=== PATIENT | female | born 1940 | race Caucasian/White ===

== ENCOUNTER 2023-10-04 20:09 | Inpatient (IN) | payer OTHER, SELFPAY ==
[2023-10-04] VITALS (9 sets, daily range): BP systolic 112–146; BP diastolic 55–89; BMI 26.9
[2023-10-04 14:04] LABS: % Basophils 0.7 % (0-2); % Eosinophils 1.3 % (0-6); % Immature Granulocytes 0.2 % (0-0.5); % Lymphocytes 22.9 % (20.5-51.1); % Monocytes 7.7 % (1.7-9.3); % Neutrophils 67.2 % (42.2-75.2); Absolute Basophils 0.1 10^3/uL (0-0.2); Absolute Eosinophils 0.1 10^3/uL (0-0.7); Absolute Monocytes 0.7 10^3/uL (0.1-0.6); Absolute Neutrophils 5.7 10^3/uL (1.4-6.5); Hematocrit 38.5 % (37.0-47.0); Hemoglobin 12.9 g/dL (12.0-16.0); Mean Corp Hgb Conc. 33.5 g/dL (33.0-37.0); Mean Corpuscular Hgb 30.7 pg (27.0-31.0); Mean Corpuscular Volume 91.7 fL (81.0-99.0); Mean Platelet Volume 9.1 fL (7.4-10.4); Nucleated Red Blood Cells % 0 %; Platelet Count 278 10^3/uL (130-400); Red Cell Dist. Width 14.3 % (11.5-14.5); White Blood Cell Count 8.6 10^3/uL (4.8-10.8)
[2023-10-04 14:15] LABS: ALT (SGPT) 23 U/L (0-35); AST (SGOT) 33 U/L (14-36); Albumin 4.4 g/dl (3.5-5.0); Alkaline Phosphatase 61 U/L (38-126); Blood Urea Nitrogen 35 mg/dl (7-17); Calcium 9.7 mg/dl (8.4-10.2); Carbon Dioxide 25 mmol/L (22-30); Chloride 100 mmol/L (98-107); Glucose 99 mg/dl (70-99); Lipase 104 U/L (23-300); Potassium 3.7 mmol/L (3.5-5.1); Sodium 135 mmol/L (135-145); Total Bilirubin 0.7 mg/dl (0.2-1.3); Total Protein 6.9 g/dl (6.3-8.2)
[2023-10-04 14:26] LABS: INR 2.09; PT 23.7 Sec (11.4-14.6); Troponin I < 0.012 ng/ml
[2023-10-04] MEDS: PEPCID 20 MG IV (16:09)
[2023-10-04] MEDS: NSS 500 IV (16:10)
--- NOTE | 2023-10-04 19:02 | ED.GENMED ---
History of Present Illness
General
Chief Complaint: Abdominal Symptoms
Source: patient and spouse
Exam Limitations: none
Time Seen by Provider: 10/04/23 15:05
Nursing documentation reviewed up to this point in time: agreed with
Travel History
Have you had any contact with someone who has COVID-19?: No
Do you have any symptoms of coronavirus? Fever > 100 degrees, chills, cough, shortness of breath, sore throat, loss of taste or smell, muscle aches, or headache?: No
History of Present Illness
History of Present Illness:
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
has lower abdominal pain. Denies any chest pain shortness of breath fevers.
Past History
Past History
ED Past Medical History: HTN, Other (Left lower extremity DVT August 2011), Other (Occasional urinary retention) and Other (Osteoarthritis)
ED Past Surgical History: Gynecological (Pelvic prolapse repair 08/29/2011) and Orthopedic (Bilateral carpal, release, bilateral trigger finger release, right wrist surgery)
Social History
Tobacco: Non-smoker
Alcohol: Occasional
Drug: None
Personal:
Living: with family
Family History
Family History: Hypertension
Review of Systems
Review of Systems
Allergies reviewed?: Yes
All Other Systems: ROS reviewed and negative except as documented in HPI and ROS
Phy Exam
Physical Exam
Physical Exam:
GENERAL: Alert , in no apparent distress
EYE: pupils equal and reactive
NECK: Supple, no significant adenopathy.
ENT: o/p clr, mmm.
CARDIAC: Regular rate and rhythm .
LUNGS: Clear breath sounds bilaterally, no acute respiratory distress, no wheezes/rales/rhonchi
ABDOMEN: Mild lower abdominal pain otherwise soft
NEUROLOGICAL: Alert and oriented, no focal neuro deficits
SKIN: Warm and dry, skin intact.
MUSCULOSKELETAL: No edema, well perfused.
PSYCH: Normal and appropriate interaction.
Course
Orders/Labs/Results
Orders:
Orders
10/04/23 13:42
Electrocardiogram (*1) Urgent
Reason for Study: Abdominal Pain
EKG- Treatment ONCE
10/04/23 13:52
Complete Blood Count/With Diff Urgent
Comprehensive Metabolic Panel Urgent
INR [Prothrombin Time] Urgent
Lipase Urgent
Troponin I Urgent
10/04/23 15:30
CT Abd/Pel (IV only)-DH only Urgent
Comment:
Reason For Exam: abd pain
Famotidine [Pepcid] 20 mg IV NOW STA
10/04/23 15:31
0.9% Sodium Chloride 500 ml [Nss] 500 ml IV BOLUS
Abnormal Lab Results
10/04/23
13:52
Absolute Monos (auto) 0.7 H 10^3/uL
(0.1-0.6)
PT 23.7 H Sec
(11.4-14.6)
BUN 35 H mg/dl
(7-17)
10/04/23 13:52
10/04/23 13:52
Vital Signs
Initial and Last Documented VS:
Initial Vital Signs
Temp Pulse Resp BP Pulse Ox
98.5 F 88 18 112/89 97
10/04/23 13:39 10/04/23 13:39 10/04/23 13:39 10/04/23 13:39 10/04/23 13:39
Last Documented Vital Signs
Temp Pulse Resp BP Pulse Ox
98.5 F 88 18 128/62 96
10/04/23 13:39 10/04/23 13:39 10/04/23 13:39 10/04/23 18:00 10/04/23 18:30
MDM/Problems Addressed
MDM/Problems Addressed:
83-year-old female presenting to the emergency department today with concerns of lower abdominal pain. Ongoing nausea over the past week and decreased bowel movements. Vital signs normal labs unremarkable INR therapeutic CT scan showing small
bowel obstruction plan to admit for further monitoring assessment
*Critical Care Note
Total Time (30-74mins, 75-104mins- exclusive of procedures): Not Applicable
ED Attending Note
-
Portions of this chart may have been created with voice recognition software.� Occasional wrong word or��sound alike� substitutions may have occurred due to the inherent limitations of voice recognition software.
Discharge Plan
Departure
Patient Disposition: Admit
Date of Disposition: 10/04/23
Time of Disposition: 19:04
Admit to: Med/Surg
Admit to doctor: Aravind
Presentation/result/management discussed w/ accepting MD/DO: Hospitalist
Patient with high blood pressure during this ER visit?: No
Condition: Good
Covid-19: Not Applicable
Discharge Problem:
SBO (small bowel obstruction)
Prescriptions:
No Action
Senior Multivitamin
1 tab PO DAILY
Vitamin D & Calcium
2 tab PO DAILY
warfarin [Coumadin] 5 MG tablet
5 mg PO DAILY
pantoprazole 40 MG tablet,delayed release (DR/EC)
40 mg PO DAILY
Lisinopril
7.5 mg PO DAILY
acetaminophen-codeine 1 TABLET tablet
1 tab PO Q6HPRN PRN (Reason: pain) Qty: 15 0RF
Referrals:
Eli Craven MD [Family Provider] -
Interventions
Interventions:
*Risk Screen - Suicide Last Done: 10/04/23 13:39
*General Assessment Last Done: 10/04/23 13:39
*Neglect/Abuse Screening Last Done: 10/04/23 13:39
*ED COVID-19 Vaccine History Last Done: 10/04/23 13:39
HG-Mabgfr-Coxgpaqaie Assessment Last Done: 10/04/23 14:52
--- NOTE | 2023-10-04 19:39 | HPS.HSE ---
Family Physician
-
Family Physician: Eli Craven
Chief Complaint
-
N/V/Abd pain
History of Present Illness
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
CT
Medical History
Past Medical History
Past Medical History: Reports Other
Additional Past Medical History:
See HPI
Past Surgical History: Reports Other
Additional Past Surgical History:
See HPI
Social History
Tobacco: Non-smoker
Alcohol: None
Drug: None
Family History
Family History: Not pertinent
Allergies / Home Medications
Allergies reflects when Allergies were last updated in [employer].
Home Medications with original date entered in [employer]
Allergy/Medication List:
Allergies
Allergy/AdvReac Type Severity Reaction Status Date / Time
Penicillins Allergy Hives Verified 10/04/23 13:42
Home Medications
lisinopril 10 mg tablet 10 mg PO DAILY 03/13/14
atorvastatin 10 mg tablet 10 mg PO QPM 10/04/23
famotidine 20 mg tablet 20 mg PO QPM 10/04/23
hydrochlorothiazide 12.5 mg tablet 12.5 mg PO DAILY 10/04/23
warfarin 5 mg tablet 2.5 mg PO TU@1800 10/04/23
warfarin 5 mg tablet 5 mg PO SUMOWETHFRSA@1800 10/04/23
Review of Systems
-
A 12 point ROS was completed and negative except as noted: Yes
Abdomen/GI: Reports See HPI
Physical Exam
Vital Signs
Vital Signs
Temp Pulse Resp BP Pulse Ox
98.5 F 88 18 146/81 94
10/04/23 13:39 10/04/23 13:39 10/04/23 13:39 10/04/23 19:00 10/04/23 19:00
Physical Exam
General: Well Developed, Well Nourished and No Apparent Distress
HEENT: NormoCephalic and Anicteric
Respiratory: Clear
Cardiac: S1/S2 and Regular Rhythm
GI: Soft, Non Distended, Tender (diffusely) and Other (No bowel sounds)
Musculoskeletal: No Clubbing, No Cyanosis and No Edema
Skin: Warm; No Dry or Rash
Neuro: Awake, Alert, Oriented and AO x 3
Hematologic/Lymphatic: No Lymphadenopathy
Psych: Calm
Laboratory Results
-
10/04/23 13:52
10/04/23 13:52
Laboratory Results
PT 23.7 Sec (11.4-14.6) H 10/04/23 13:52
INR 2.09 10/04/23 13:52
Total Bilirubin 0.7 mg/dl (0.2-1.3) 10/04/23 13:52
AST 33 U/L (14-36) 10/04/23 13:52
ALT 23 U/L (0-35) 10/04/23 13:52
Alkaline Phosphatase 61 U/L (38-126) 10/04/23 13:52
Troponin I < 0.012 ng/ml 10/04/23 13:52
Lipase 104 U/L (23-300) 10/04/23 13:52
Impression/Plan
-
A/P:
#SBO
No flatulence over past 24h
No vomiting - will defer NG tube placement
NPO and advance diet as tolerated
GenSx consult
#May garay with iliac stent thrombosis and chronic LLE swelling
COumadin on hold, start Heparin/LMWH when INR<2.0 to allow for possible intervention if needed
#Essential HTN
cont meds when PO intake restored
IV antihypertensives PRN
DVT ppx on warfarin
Full code
This encounter required high level of medical decision making due to complexity of PMHX and patient presenting symptoms
--- NOTE | 2023-10-04 20:40 | PTCARENOTE ---
Pt transferred to unit from ED with dx of SBO. Patient is AAO x 3 and oriented to the room and call saavedra is within reach. Admission vital signs were stable, no pain reported, and D5W fluids started. Pneumatic compression stockings placed on pt.
[2023-10-04] MEDS: D5W 1000 IV (20:52)
[2023-10-05 06:09] LABS: % Basophils 0.7 % (0-2); % Eosinophils 3.3 % (0-6); % Immature Granulocytes 0.3 % (0-0.5); % Lymphocytes 21.6 % (20.5-51.1); % Monocytes 7.9 % (1.7-9.3); % Neutrophils 66.2 % (42.2-75.2); Absolute Basophils 0.1 10^3/uL (0-0.2); Absolute Eosinophils 0.3 10^3/uL (0-0.7); Absolute Lymphocytes 1.7 10^3/uL (1.2-3.4); Absolute Monocytes 0.6 10^3/uL (0.1-0.6); Absolute Neutrophils 5.1 10^3/uL (1.4-6.5); Hematocrit 34.9 % (37.0-47.0); Hemoglobin 11.7 g/dL (12.0-16.0); Mean Corp Hgb Conc. 33.5 g/dL (33.0-37.0); Mean Corpuscular Hgb 30.6 pg (27.0-31.0); Mean Corpuscular Volume 91.4 fL (81.0-99.0); Mean Platelet Volume 9.3 fL (7.4-10.4); Nucleated Red Blood Cells % 0 %; Platelet Count 258 10^3/uL (130-400); Red Blood Cell Count 3.82 10^6/uL (4.20-5.40); Red Cell Dist. Width 14.2 % (11.5-14.5); White Blood Cell Count 7.7 10^3/uL (4.8-10.8)
[2023-10-05 06:18] LABS: INR 1.97; PT 22.6 Sec (11.4-14.6)
[2023-10-05 06:25] LABS: Lactic Acid 0.7 mmol/L (0.7-2.0)
[2023-10-05 06:44] LABS: ALT (SGPT) 17 U/L (0-35); AST (SGOT) 25 U/L (14-36); Albumin 3.4 g/dl (3.5-5.0); Alkaline Phosphatase 51 U/L (38-126); Blood Urea Nitrogen 23 mg/dl (7-17); Calcium 8.9 mg/dl (8.4-10.2); Carbon Dioxide 26 mmol/L (22-30); Chloride 101 mmol/L (98-107); Estimated Creatinine Clearance 38 ml/min; Glucose 104 mg/dl (70-99); Phosphorus 3.4 mg/dl (2.5-4.5); Potassium 3.8 mmol/L (3.5-5.1); Sodium 134 mmol/L (135-145); Total Bilirubin 0.6 mg/dl (0.2-1.3); Total Protein 5.5 g/dl (6.3-8.2); eGFR > 60.00
[2023-10-05 07:43] VITALS: BP 129/56
[2023-10-05] MEDS: D5W 1000 IV (08:13)
--- NOTE | 2023-10-05 09:07 | CON.GS ---
Addendum entered and electronically signed by Khoi Chambers MD 10/05/23 15:41:
Patient seen and examined with nurse practitioner. Agree with documented consultation.
HPI: Patient is an 83-year-old female with history of open mesh sacrocolpopexy and mid urethral transvaginal tape in 2011 who has been in her usual baseline state of health until she developed the acute onset of abdominal pain Sunday into Sunday.
She had nausea and vomiting initially on Sunday and it felt she was improving. Sunday she attempted to eat again and her symptoms have returned. She presented to the emergency department yesterday evening due to ongoing nausea vomiting and
generalized abdominal pain.
No similar episodes in the past. She has not vomited since emergency department. No recent bowel movements. No recent flatus. She does feel better though since admission with resolved abdominal pain and no nausea. She feels as though she is
less distended as well.
Afebrile, vital signs stable
NAD, AAOx3, elderly female that appears younger than her stated age new
ABD: Soft, mildly distended in the upper abdomen with tympany, no tenderness on palpation or percussion. No rebound rigidity or guarding.
Laboratory testing notable for white count of 7.6, hemoglobin 12, platelets 267. There is no WBC shift and no bandemia. INR today is 1.97. Slight hyponatremia at 134, no acidosis and BUN/creatinine are 23/0.8
[address] imaging [address] abdomen/pelvis 10/04/2023 no oral contrast administered. There are prominent fluid-filled loops of small bowel with air-fluid levels throughout the central and upper abdomen. Fecalization of a loop of small bowel
down in the pelvis with a probable transition point around the region of the sacrum/right pelvis. Trace free fluid. No pneumatosis, no ascites, no free air. Stool noted in the colon but relatively collapsed distally from the descending colon to
the rectum.
Assessment/plan: 83-year-old female presenting with small bowel obstruction likely secondary to adhesions. No radiographic signs of closed-loop obstruction, bowel compromise or immediate threat. Abdominal examination without peritoneal signs and
essentially nontender although still with some distention/tympany.
Initial CT imaging was without enteric contrast. Given degree of clinical improvement but uncertainty whether obstruction has resolved we will repeat CT imaging today with oral contrast.
Hold oral therapeutic anticoagulation, okay to initiate heparin drip which could be held if surgical intervention needed.
Continue IV fluid hydration, bowel rest, supportive care awaiting further GI contrast imaging study.
Original Note:
Consultation
-
Date/Time Consultation Requested: 10/04/232037
Requesting Provider: Julia
Performing Provider: Jerry Chambers
Reason for Consultation: SBO
Medical History
-
Chief Complaint: abdominal pain
History of Present Illness:
This is an 83 yo female with a h/o vaginal hysterectomy with subsequent pelvic floor prolapse and repair with open mesh sacrocolpopexy and mid urethral transvaginal tape in 2011, er with chronic thrombosis of right iliac stent, prior
migration of an IVC filter with removal at [facility] who is maintained on chronic Coumadin now presenting with 5 day history of lower abdominal pain which developed overnight Sunday into Sunday with nausea and vomiting of undigested food. On Sunday,
she was able to pass a small stool but has been unable to pass stool or flatus since that time. She tried to eat toast on Sunday and had return of vomiting symptoms and has been unable to eat since that time due to nausea and anorexia causing her
to present for evaluation. She notes significant abdominal distention at home with some improvement since presentation although she has still been unable to pass flatus. On exam, there is mild tenderness to the lower abdomen with mild distention.
Past Medical History
Past Medical History: GERD, HTN and Other (November-er with right iliac stent and chronic thrombus)
Past Surgical History: Gynecological (vaginal hysterectomy >40 years), Urological (open mesh sacrocolpopexy and mid urethral transvaginal tape in 2011) and Other (IVC filter with removal d/t migration)
Social History
Tobacco: Non-Smoker
Alcohol: Occasional
Family History
Family History: Reviewed & Not Pertinent
Allergies / Home Medications
Allergy/AdvReac Type Severity Reaction Status Date / Time
Penicillins Allergy Hives Verified 10/04/23 13:42
Medication Instructions Recorded Confirmed Type
lisinopril 10 mg tablet 10 mg PO DAILY Blood Pressure 03/13/14 10/04/23 History
atorvastatin 10 mg tablet 10 mg PO QPM High Cholesterol 10/04/23 10/04/23 History
famotidine 20 mg tablet 20 mg PO QPM Gastrointestinal Issue 10/04/23 10/04/23 History
hydrochlorothiazide 12.5 mg tablet 12.5 mg PO DAILY Fluid 10/04/23 10/04/23 History
Retention/Swelling
warfarin 5 mg tablet 2.5 mg PO TU@1800 Blood Clot 10/04/23 10/04/23 History
Prevention/Tx
warfarin 5 mg tablet 5 mg PO SUMOWETHFRSA@1800 Blood 10/04/23 10/04/23 History
Clot Prevention/Tx
Review of Systems
-
History Source: Patient
All other systems: Negative unless noted
A 10 point review of systems was completed, and was negative except as per HPI.
Physical Exam
Vital Signs
Temp Pulse Resp BP Pulse Ox
98.1 F 70 20 129/56 96
10/05/23 07:43 10/05/23 07:43 10/05/23 07:43 10/05/23 07:43 10/05/23 07:43
10/04/23 10/05/23 10/06/23
06:59 06:59 06:59
Actual Weight 54.4 kg
Body Mass Index (BMI) 26.9
Lab Results
10/05/23 05:46
10/05/23 05:46
WBC 7.7 10^3/uL (4.8-10.8) 10/05/23 05:46
Hgb 11.7 g/dL (12.0-16.0) L 10/05/23 05:46
Hct 34.9 % (37.0-47.0) L 10/05/23 05:46
Plt Count 258 10^3/uL (130-400) 10/05/23 05:46
Abs Immat Gran (auto) 0.0 10^3/uL (0-0.05) 10/05/23 05:46
Neutrophils % 66.2 % (42.2-75.2) 10/05/23 05:46
Physical Exam
General: Well Developed, Well Nourished and No Apparent Distress
HEENT: Moist Mucous Membranes
Respiratory: Non Labored Respirations
GI: Soft, Tender (mild to lower abdomen/pelvis) and Distended
Skin: Warm and Dry
Neuro: Awake, Alert and AO x 3
Psych: Calm
Data Reviewed
-
CT Scan: Image Personally Visualized and interpreted, Report Reviewed by me, Discussed with Physician and Discussed with Patient
Labs: Labs Reviewed by me, Discussed with Physician and Discussed with Patient
Old Records: Reviewed
Assessment / Plan
-
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
maintained on chronic Coumadin now presenting with 5 day history of lower abdominal pain with nausea and vomiting of undigested food. NO BM/flatus since Sunday, unable to tolerate PO intake since that time. CT imaging w/o PO contrast reviewed and
consistent with adhesive SBO. No pneumoperitoneum or evidence of immanent bowel threat/compromise. Mild nausea without vomiting. No leukocytosis. AFVSS.
Plan:
Continue NPO with IVF for bowel rest
No emergent surgery planned, however, given the length of symptoms may require surgical intervention this admission
Hold oral anticoagulation
--- NOTE | 2023-10-05 12:50 | W.PN.HOSP.TC ---
Today's Communication/Plan
-
see A/P
Assessment / Plan
Assessment / Plan
83yo F with PMH of hysterectomy, open mesh sacrocolpopexy, GERD, May-Tanisha with chronic thrombosis of the iliac stent on Coumadin, HTN came with 4 days of diffuse abdominal pain with 2 episodes of vomiting, found SBO on CT
CT AP:
1. Developing small bowel obstruction with a transition point in the lower abdomen.
2. Vascular stent extending from the left common iliac vein to the left common femoral vein. There appears to be occlusive thrombus in the segment of the stent in the left external iliac vein.
A/P:
# SBO
No vomiting - will defer NG tube placement
NPO with IVF and bowel rest
GS on board, no emergent surgery planned, however, given the length of symptoms may require surgical intervention this admission
Hold oral anticoagulation
# May tanisha with iliac stent thrombosis and chronic LLE swelling
Coumadin on hold,
INR at 1.97, start Heparin drip
# Essential HTN
cont meds when PO intake restored
IV antihypertensives PRN
DVT ppx: heparin drip in place of [employer]ING [employer] Coumadin
Full code
DW at bedside
Anticipated Discharge: 24 - 48 hours
Subjective/Interval History
-
Date of Service: October 05, 2023
Objective Data
-
Labs:
Laboratory Results
10/05/23
05:46
WBC 7.7
Hgb 11.7 L
Hct 34.9 L
Plt Count 258
PT 22.6 H
INR 1.97
Sodium 134 L
Potassium 3.8
Chloride 101
Carbon Dioxide 26
BUN 23 H
Creatinine 0.8
Glucose 104 H
Calcium 8.9
Total Bilirubin 0.6
AST 25
ALT 17
Alkaline Phosphatase 51
Vital Signs:
Vital Signs
Temp Pulse Resp BP Pulse Ox
36.7 C 70 20 129/56 96
10/05/23 07:43 10/05/23 07:43 10/05/23 07:43 10/05/23 07:43 10/05/23 07:43
I&O
10/04/23 10/05/23 10/06/23
06:59 06:59 06:59
Intake Total 120 / 120
Balance 120 / 120
Review of Systems
-
Abdomen/GI: Reports Abdominal Pain (mild and much improved )
Physical Exam
-
General: Well Developed, Well Nourished, No Apparent Distress, Comfortable and Conversant; Negative Respiratory Distress
HEENT: Normocephalic, Atraumatic, Nose Appears Normal and Ears Appear Normal; Negative Oxygen
Respiratory: Clear to Auscultation and Non Labored Respirations; Negative Accessory Resp Muscle Use
Cardiac: Regular Rhythm and S1/S2
GI: Soft, Nondistended and Normal Bowel Sounds
Skin: Warm and Dry
Neuro: Awake, Alert, Oriented and AO x 3
Psych: Calm and Intact Judgement/Insight
Data Reviewed
-
CT Scan: Report Reviewed by me
Labs: Labs Reviewed by me
[2023-10-05 13:31] LABS: Hematocrit 35.3 % (37.0-47.0); Mean Corpuscular Hgb 30.7 pg (27.0-31.0); Mean Corpuscular Volume 90.3 fL (81.0-99.0); Mean Platelet Volume 9.3 fL (7.4-10.4); Platelet Count 267 10^3/uL (130-400); Red Blood Cell Count 3.91 10^6/uL (4.20-5.40); Red Cell Dist. Width 14.1 % (11.5-14.5); White Blood Cell Count 7.6 10^3/uL (4.8-10.8)
[2023-10-05 13:47] LABS: APTT 28.5 Sec (23.4-35.0)
[2023-10-05] MEDS: HEPARIN 25000 UNITS/250 ML IV (14:06)
[2023-10-05] MEDS: OMNIPAQUE 50 ML PO (15:00)
[2023-10-05 15:12] VITALS: BP 144/65
--- NOTE | 2023-10-05 15:29 | CM ---
Patient seen at bedside, patient reports that she lives in a [place] community [facility]. Patient lives with her in a 2 story home, with first floor set up. Patient PCP is Dr. Craven and they use the [facility] in [place] on [address] Patient is driving and has no DME or past need for VN or SNF. CM will continue to follow for discharge planning needs.
Plan; home with VN vs home with no needs.
[2023-10-05] MEDS: D5/0.9% SODIUM CHLORIDE 1000 IV (18:19)
[2023-10-05 20:12] LABS: APTT 101.1 Sec (23.4-35.0)
[2023-10-05 23:00] VITALS: BP 139/68
[2023-10-06] VITALS (16 sets, daily range): BP systolic 98–138; BP diastolic 47–73; BMI 26.7
[2023-10-06 02:18] LABS: APTT 106.5 Sec (23.4-35.0)
--- NOTE | 2023-10-06 03:00 | PTCARENOTE ---
Heparin gtt placed on hold at 0300 per order for O.R. in a.m.
[2023-10-06] MEDS: D5/0.9% SODIUM CHLORIDE 1000 IV (04:26)
[2023-10-06 07:46] LABS: Hematocrit 35.1 % (37.0-47.0); Mean Corp Hgb Conc. 34.2 g/dL (33.0-37.0); Mean Corpuscular Hgb 30.8 pg (27.0-31.0); Mean Platelet Volume 9.6 fL (7.4-10.4); Platelet Count 262 10^3/uL (130-400); Red Cell Dist. Width 13.9 % (11.5-14.5); White Blood Cell Count 10.6 10^3/uL (4.8-10.8)
[2023-10-06 08:02] LABS: INR 1.64; PT 19.2 Sec (11.4-14.6)
[2023-10-06 08:45] LABS: Blood Urea Nitrogen 14 mg/dl (7-17); Calcium 8.7 mg/dl (8.4-10.2); Carbon Dioxide 23 mmol/L (22-30); Chloride 102 mmol/L (98-107); Estimated Creatinine Clearance 43 ml/min; Glucose 125 mg/dl (70-99); Magnesium 1.9 mg/dl (1.6-2.3); Potassium 3.3 mmol/L (3.5-5.1); Sodium 134 mmol/L (135-145); eGFR > 60.00
[2023-10-06] MEDS: D5/0.9% SODIUM CHLORIDE IV (11:17)
--- NOTE | 2023-10-06 14:51 | W.IMMPOSTOP ---
Addendum entered and electronically signed by Hussein Shaver MD 10/06/23 16:03:
Updated patient's family face to face in patient's room on 4th floor.
Original Note:
Surgical Immed Post Op Note
-
Primary Surgeon: Ibrahima Shaver MD
Assisting Surgeon: (franciaurgekaterina) Praful Chambers MD
Pre-op Diagnosis: small bowel obstruction
Post-op Diagnosis: same
Procedure Performed: 1) exploratory laparotomy 2) extensive lysis of adhesions
Anesthesia Type: general plus local
Specimen / Cultures: none
Estimated Blood Loss: 100 cc
Complications: no immediate
Operative Findings: 1) internal hernia with associated small bowel obstruction 2) dense pelvic adhesions to mesh
NGT in stomach (confirmed in OR).
Haas in bladder.
Will send to med surg.
[2023-10-06] MEDS: TORADOL 10 MG IV ×2 (16:20→22:12)
--- NOTE | 2023-10-06 16:45 | PTCARENOTE ---
Received pt from PACU report given by Linda PENALOZA. AAO*3 c/o 01/29 abdominal pain. L Nare NGT to low intermittent suction. Patient also has Haas to be removed Post op day 2.
--- NOTE | 2023-10-06 16:47 | W.PN.HOSP.TC ---
Today's Communication/Plan
-
NPO/IVF
hold IV heparin drip
Assessment / Plan
Assessment / Plan
pt is an 83 year old female
SBO--apprec surgery--POD 0, returned from PACU with NGT and AMAN --cont NPO/IVF--Hold oral anticoagulation
May Thurner with iliac stent thrombosis and chronic LLE swelling--holding coumadin--was on IV heparin drip--holding that until tomorrow as pt just returned from surgery 10/06/23--follow INR
Essential HTN--cont meds when PO intake restored--IV antihypertensives PRN
DVT ppx: heparin drip in place of [employer] Coumadin
Full code
Anticipated Discharge: > 48 hours
Subjective/Interval History
-
Date of Service: October 06, 2023
pt returned from PACU
Objective Data
-
Labs:
Laboratory Results
10/06/23
06:57
WBC 10.6
Hgb 12.0
Hct 35.1 L
Plt Count 262
PT 19.2 H
INR 1.64
Sodium 134 L
Potassium 3.3 L
Chloride 102
Carbon Dioxide 23
BUN 14
Creatinine 0.7
Glucose 125 H
Calcium 8.7
Vital Signs:
max temp for 24 hours
10/05/23
23:00
Temp 98.9 F
Vital Signs
Temp Pulse Resp BP Pulse Ox
99.6 F 80 18 102/53 96
10/06/23 16:00 10/06/23 16:00 10/06/23 16:00 10/06/23 16:00 10/06/23 16:00
I&O
10/05/23 10/06/23 10/07/23
06:59 06:59 06:59
Intake Total 120 / 120 0 / 0 350 / 350
Output Total 350 / 350
Balance 120 / 120 0 / 0 0 / 0
Review of Systems
-
All other systems: Reviewed and negative
Physical Exam
-
General: Well Developed, Well Nourished and No Apparent Distress
HEENT: Normocephalic, Atraumatic and Other (NGT)
Respiratory: Clear to Auscultation; Negative Wheezes or Rhonchi
Cardiac: Regular Rhythm and S1/S2; Negative Murmur
GI: Soft, Tender and Distended; Negative Normal Bowel Sounds (no bowel sounds--Post op)
Genito-urinary: Clear Urine and Haas
Musculoskeletal: No Clubbing, No Cyanosis and No Edema
Neuro: Awake
Psych: Calm
[2023-10-06] MEDS: KCL 270 MEQ IV (17:03)
[2023-10-06] MEDS: MORPHINE SULFATE 2 MG IV (17:04)
[2023-10-06] MEDS: OFIRMEV 100 IV (21:59)
[2023-10-07 03:00] VITALS: BP 125/65
[2023-10-07] MEDS: OFIRMEV 100 IV ×4 (03:10→21:27)
[2023-10-07] MEDS: TORADOL 10 MG IV ×4 (03:11→22:10)
[2023-10-07] MEDS: D5/0.9% SODIUM CHLORIDE 1000 IV ×2 (05:41→15:43)
[2023-10-07 07:12] LABS: % Basophils 0.1 % (0-2); % Eosinophils 0.1 % (0-6); % Immature Granulocytes 0.3 % (0-0.5); % Lymphocytes 13.3 % (20.5-51.1); % Monocytes 7.8 % (1.7-9.3); % Neutrophils 78.4 % (42.2-75.2); Absolute Lymphocytes 1.2 10^3/uL (1.2-3.4); Absolute Monocytes 0.7 10^3/uL (0.1-0.6); Absolute Neutrophils 7.3 10^3/uL (1.4-6.5); Hemoglobin 12.1 g/dL (12.0-16.0); Mean Corp Hgb Conc. 32.7 g/dL (33.0-37.0); Mean Corpuscular Hgb 30.3 pg (27.0-31.0); Mean Corpuscular Volume 92.5 fL (81.0-99.0); Mean Platelet Volume 9.6 fL (7.4-10.4); Nucleated Red Blood Cells % 0 %; Platelet Count 251 10^3/uL (130-400); Red Cell Dist. Width 14.2 % (11.5-14.5); White Blood Cell Count 9.4 10^3/uL (4.8-10.8)
[2023-10-07 07:14] LABS: INR 1.51
[2023-10-07 07:33] LABS: Blood Urea Nitrogen 13 mg/dl (7-17); Calcium 7.1 mg/dl (8.4-10.2); Carbon Dioxide 24 mmol/L (22-30); Chloride 106 mmol/L (98-107); Estimated Creatinine Clearance 50 ml/min; Glucose 140 mg/dl (70-99); Magnesium 2.4 mg/dl (1.6-2.3); Phosphorus 3.1 mg/dl (2.5-4.5); Potassium 4.2 mmol/L (3.5-5.1); Sodium 134 mmol/L (135-145); Triglycerides 70 mg/dl (10-149); eGFR > 60.00
[2023-10-07 07:36] LABS: Prealbumin (Transthyretin) 12.9 mg/dl (17.6-36.0)
[2023-10-07 07:40] VITALS: BP 112/65
[2023-10-07] MEDS: PROTONIX IV 40 MG IV (09:04)
[2023-10-07] MEDS: NSS (PRESERVATIVE FREE) 10 ML IV (09:04)
[2023-10-07 11:00] VITALS: BP 110/58
--- NOTE | 2023-10-07 11:59 | PTCARENOTE ---
Assumed care of pt from previous nurse. Pt denies pain. reports relief in abdomen. NG tube draining brown output. Pt tolerating. Pt tsai draining yellow urine. Pt call saavedra is within reach, pt rings ronald. will cont to monitor.
--- NOTE | 2023-10-07 12:27 | W.PN.GS2 ---
Today's Communication / Plan
-
NPO with NGT to LIwS
Assessment / Plan
-
83-year-old female with history of chronic rle vte () and open mesh sacrocolpopexy and mid urethral transvaginal tape in 2011 who has been in her usual baseline state of health until she developed the acute onset of abdominal pain last
Sunday into Sunday. CT imaging consistent with adhesive SBO with no improvement with bowel rest.
POD #1 ex lap with AMAN
AFVSS
Labs stable post op
Following for returning bowel function
Last meal one week ago, protein calorie malnutrition noted with prealbumin of 12.9
--Continue NGT to LIWS
--IVF while NPO
--Continue Haas today
--Trend labs
--Consult nutrition, will likely need TPN
--Continue scheduled Ofirmev/Toradol with prn morphine
--Continue with therapeutic AC on hold for minimum of 48h post op, will give heparin SQ for VTE ppx
--IV Protonix for GI ppx while NGT in place
Subjective Data
-
Date of Service: October 07, 2023
Patient seen and examined at bedside with Dr. Shaver. Denies n/v. Abdominal discomfort minimal. No passage of stool/flatus as of yet.
Objective Data
-
Intake and Output
10/06/23 10/07/23 10/08/23
06:59 06:59 06:59
Intake Total 0 / 0 1420 / 1420 30 / 30
Output Total 450 / 450 30 / 30
Balance 0 / 0 970 / 970 0 / 0
Intake:
Oral fluids 0 / 0
IV fluids (Total) 1130 / 1130
D5NS @100 50 / 50
Normosol 300 / 300
IV piggybacks 200 / 200
Amount instilled into GI Tube ( 90 / 90 30
Total)
[place] Sump / 90
Output:
Gastrointestinal tube output ( 200 / 200 / 30
Total)
[place] Sump 200 / 200 / 30
Urine, Haas 250 / 250
Other:
Number of approximated MODERATE 3 1
amounts of urine
Number of approximated LARGE 4
amounts of urine
Vital Signs
Temp Pulse Resp BP Pulse Ox
98.5 F 74 14 110/58 94
10/07/23 11:00 10/07/23 11:00 10/07/23 11:00 10/07/23 11:00 10/07/23 11:00
Lab Results
10/07/23 06:45
10/07/23 06:45
Calcium 7.1 mg/dl (8.4-10.2) L D 10/07/23 06:45
Phosphorus 3.1 mg/dl (2.5-4.5) 10/07/23 06:45
Magnesium 2.4 mg/dl (1.6-2.3) H 10/07/23 06:45
Total Bilirubin 0.6 mg/dl (0.2-1.3) 10/05/23 05:46
Direct Bilirubin 0.0 mg/dl (0.0-0.4) 10/05/23 05:46
AST 25 U/L (14-36) 10/05/23 05:46
ALT 17 U/L (0-35) 10/05/23 05:46
Alkaline Phosphatase 51 U/L (38-126) 10/05/23 05:46
Total Protein 5.5 g/dl (6.3-8.2) L D 10/05/23 05:46
Albumin 3.4 g/dl (3.5-5.0) L 10/05/23 05:46
Physical Exam
-
NAD, Ox3
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
Incision with intact dressing
--- NOTE | 2023-10-07 12:52 | W.PN.HOSP.TC ---
Today's Communication/Plan
-
NPO/IVF
holding IV heparin and coumadin until cleared by surgery
PT/OT as able
Assessment / Plan
Assessment / Plan
pt is an 83 year old female
SBO--apprec surgery--POD 1 AMAN --cont NPO/IVF/NGT--Hold oral anticoagulation
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
Essential HTN--cont meds when PO intake restored--IV antihypertensives PRN
DVT ppx: heparin drip in place of REGIONAL CLIMATE CHANGE ANALYST Coumadin
Full code
Anticipated Discharge: > 48 hours
Subjective/Interval History
-
Date of Service: October 07, 2023
pt doing well post op
Objective Data
-
Labs:
Laboratory Results
10/07/23
06:45
WBC 9.4
Hgb 12.1
Hct 37.0
Plt Count 251
PT 18.0 H
INR 1.51
Sodium 134 L
Potassium 4.2 D
Chloride 106
Carbon Dioxide 24
BUN 13
Creatinine 0.6
Glucose 140 H
Calcium 7.1 L D
Vital Signs:
max temp for 24 hours
10/06/23
23:00
Temp 98.5 F
Vital Signs
Temp Pulse Resp BP Pulse Ox
98.5 F 74 14 110/58 94
10/07/23 11:00 10/07/23 11:00 10/07/23 11:00 10/07/23 11:00 10/07/23 11:00
I&O
03/16/24 03/17/24 03/18/24
06:59 06:59 06:59
Intake Total 0 / 0 1420 / 1420
Output Total 450 / 450
Balance 0 / 0 970 / 970 0 / 0
Review of Systems
-
All other systems: Reviewed and negative
Physical Exam
-
General: Well Developed, Well Nourished and No Apparent Distress
HEENT: Normocephalic, Atraumatic and Other (NGT)
Respiratory: Clear to Auscultation; Negative Wheezes, Rales, Rhonchi or Crackles
Cardiac: Regular Rhythm and S1/S2; Negative Murmur
GI: Soft, Nontender and Nondistended; Negative Normal Bowel Sounds (hypoactive)
Genito-urinary: Haas
Musculoskeletal: No Clubbing, No Cyanosis and No Edema
Skin: Warm
Neuro: Awake
[2023-10-07 15:25] VITALS: BP 108/56
[2023-10-07] MEDS: HEPARIN 5000 UNITS SC (16:00)
[2023-10-07 16:35] VITALS: BMI 26.7
[2023-10-07 23:10] VITALS: BP 106/63
[2023-10-08] MEDS: D5/0.9% SODIUM CHLORIDE 1000 IV ×2 (01:43→14:02)
[2023-10-08] MEDS: OFIRMEV 100 IV ×4 (04:24→22:38)
[2023-10-08] MEDS: TORADOL 10 MG IV ×2 (04:25→11:09)
--- NOTE | 2023-10-08 06:00 | PTCARENOTE ---
Haas catheter removed with ease,4oo mls out, Pt tolerated procedure well.
[2023-10-08 07:30] VITALS: BP 135/66
[2023-10-08] MEDS: NSS (PRESERVATIVE FREE) 10 ML IV (08:38)
[2023-10-08] MEDS: HEPARIN 5000 UNITS SC ×2 (08:38)
[2023-10-08] MEDS: PROTONIX IV 40 MG IV (08:50)
--- NOTE | 2023-10-08 08:54 | W.PN.GS2 ---
Today's Communication / Plan
-
Place PICC/Start TPN
Ok for AC if h/h stable
Assessment / Plan
-
83-year-old female with history of chronic rle vte () and open mesh sacrocolpopexy and mid urethral transvaginal tape in 2011 who has been in her usual baseline state of health until she developed the acute onset of abdominal pain last
Sunday into Sunday. CT imaging consistent with adhesive SBO with no improvement with bowel rest.
POD #2 ex lap with AMAN
AFVSS
Labs pending this AM
Following for returning bowel function
Protein calorie malnutrition noted, prolonged NPO
--Continue NGT to LIWS
--Continue IVF
--Haas removed for voiding trial
--Increase activity/ambulate. OOB. Will consult PT
--Trend labs
--Place PICC line for initiation of TPN tonight
--Continue scheduled Ofirmev/Toradol with prn morphine
--If H/H stable this morning, OK to resume therapeutic AC with heparin gtt NO boluses
--IV Protonix for GI ppx while NGT in place
Subjective Data
-
Date of Service: October 08, 2023
Patient seen and examined at bedside with Dr. Engel. Feeling about the same as previous. No passage of flatus. Minimal post op pain. No nausea.
Objective Data
-
Intake and Output
10/07/23 10/08/23 10/09/23
06:59 06:59 06:59
Intake Total 1420 / 1420 2690 / 2690
Output Total 450 / 450 1040 / 1040
Balance 970 / 970 1650 / 1650
Intake:
IV fluids (Total) 1130 / 1130 2300 / 2300
D5NS @100 50 / 50
Normosol 300 / 300
IV piggybacks 200 / 200 300 / 300
Amount instilled into GI Tube ( 90 90 / 90
Total)
[place] Sump 90 / 90 90 / 90
Output:
Gastrointestinal tube output ( 200 / 200 290 / 290
Total)
[place] Sump 200 / 200 290 / 290
Urine, Haas 250 / 250 750 / 750
Other:
Number of approximated MODERATE 1
amounts of urine
Vital Signs
Temp Pulse Resp BP Pulse Ox
98.8 F 68 18 135/66 96
10/08/23 07:30 10/08/23 07:30 10/08/23 07:30 10/08/23 07:30 10/08/23 07:30
Calcium 7.1 mg/dl (8.4-10.2) L D 10/07/23 06:45
Phosphorus 3.1 mg/dl (2.5-4.5) 10/07/23 06:45
Magnesium 2.4 mg/dl (1.6-2.3) H 10/07/23 06:45
Total Bilirubin 0.6 mg/dl (0.2-1.3) 10/05/23 05:46
Direct Bilirubin 0.0 mg/dl (0.0-0.4) 10/05/23 05:46
AST 25 U/L (14-36) 10/05/23 05:46
ALT 17 U/L (0-35) 10/05/23 05:46
Alkaline Phosphatase 51 U/L (38-126) 10/05/23 05:46
Total Protein 5.5 g/dl (6.3-8.2) L D 10/05/23 05:46
Albumin 3.4 g/dl (3.5-5.0) L 10/05/23 05:46
Physical Exam
-
NAD, Ox3
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
Incision with intact dressing
[2023-10-08 09:01] LABS: Hemoglobin 11.1 g/dL (12.0-16.0); Mean Corp Hgb Conc. 31.7 g/dL (33.0-37.0); Mean Corpuscular Hgb 30.1 pg (27.0-31.0); Mean Corpuscular Volume 94.9 fL (81.0-99.0); Mean Platelet Volume 9.8 fL (7.4-10.4); Platelet Count 250 10^3/uL (130-400); Red Blood Cell Count 3.69 10^6/uL (4.20-5.40); Red Cell Dist. Width 14.7 % (11.5-14.5); White Blood Cell Count 8.4 10^3/uL (4.8-10.8)
[2023-10-08 09:55] LABS: Blood Urea Nitrogen 12 mg/dl (7-17); Calcium 6.8 mg/dl (8.4-10.2); Carbon Dioxide 22 mmol/L (22-30); Chloride 113 mmol/L (98-107); Estimated Creatinine Clearance 43 ml/min; Glucose 96 mg/dl (70-99); Magnesium 2.4 mg/dl (1.6-2.3); Potassium 3.9 mmol/L (3.5-5.1); Sodium 136 mmol/L (135-145); eGFR > 60.00
[2023-10-08 11:00] LABS: Magnesium 2.3 mg/dl (1.6-2.3)
--- NOTE | 2023-10-08 12:04 | CM ---
Chart reviewed and plan is to home with spouse when stable.
Plan; Home with spouse no needs.
--- NOTE | 2023-10-08 13:42 | W.PN.HOSP.TC ---
Today's Communication/Plan
-
see A/P
Assessment / Plan
Assessment / Plan
A/P:
# SBO
s/p ex lap with AMAN 10/06/[address]ICC and start TPN per GS
Ok for AC if h/h stable, start heparin drip to bridge back to Coumadin
apprec surgery
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
start heparin drip to bridge back to Coumadin
daily INR
# Essential HTN
IV hydralazine PRN
DVT ppx: heparin drip bridge back to CAREER TECHNOLOGY TEACHER Coumadin
Full code
d/w at bedside
Anticipated Discharge: > 48 hours
Subjective/Interval History
-
Date of Service: October 08, 2023
Objective Data
-
Labs:
Laboratory Results
10/08/23
08:25
WBC 8.4
Hgb 11.1 L
Hct 35.0 L
Plt Count 250
PT 17.0 H
INR 1.40
Sodium 136
Potassium 3.9
Chloride 113 H
Carbon Dioxide 22
BUN 12
Creatinine 0.7
Glucose 96
Calcium 6.8 L*
Vital Signs:
Vital Signs
Temp Pulse Resp BP Pulse Ox
37.1 C 68 18 135/66 96
10/08/23 07:30 10/08/23 07:30 10/08/23 07:30 10/08/23 07:30 10/08/23 07:30
I&O
10/07/23 10/08/23 10/09/23
06:59 06:59 06:59
Intake Total 1420 / 1420 2690 / 2690
Output Total 450 / 450 1040 / 1040
Balance 970 / 970 1650 / 1650
Review of Systems
-
All other systems: Reviewed and negative
Physical Exam
-
General: Well Developed, Well Nourished and No Apparent Distress
HEENT: Normocephalic, Atraumatic and Other (NGT)
Respiratory: Clear to Auscultation and Non Labored Respirations; Negative Accessory Resp Muscle Use
Cardiac: Regular Rhythm and S1/S2; Negative Murmur
GI: Soft, Nontender and Nondistended; Negative Normal Bowel Sounds (hypoactive)
Musculoskeletal: No Clubbing, No Cyanosis and No Edema
Skin: Warm
Neuro: Awake
Psych: Calm and Intact Judgement/Insight
Data Reviewed
-
Labs: Labs Reviewed by me
[2023-10-08] MEDS: D5/0.9% SODIUM CHLORIDE IV (14:03)
[2023-10-08 14:36] LABS: Hematocrit 32.1 % (37.0-47.0); Hemoglobin 10.8 g/dL (12.0-16.0); Mean Corp Hgb Conc. 33.6 g/dL (33.0-37.0); Mean Corpuscular Hgb 31.2 pg (27.0-31.0); Mean Corpuscular Volume 92.8 fL (81.0-99.0); Mean Platelet Volume 9.8 fL (7.4-10.4); Platelet Count 228 10^3/uL (130-400); Red Blood Cell Count 3.46 10^6/uL (4.20-5.40); Red Cell Dist. Width 14.6 % (11.5-14.5); White Blood Cell Count 9.7 10^3/uL (4.8-10.8)
[2023-10-08 14:42] LABS: APTT 27.9 Sec (23.4-35.0)
[2023-10-08] MEDS: HEPARIN 25000 UNITS/250 ML IV (14:59)
[2023-10-08 15:00] VITALS: BP 134/70
[2023-10-08] MEDS: PHATP 1 UNIT PO (15:07)
[2023-10-08] MEDS: COUMADIN 5 MG PO (17:33)
[2023-10-08 22:25] VITALS: BMI 29.2
[2023-10-08] MEDS: Parenteral Nutrition, Central 1500 IV (22:26)
[2023-10-08 23:21] LABS: APTT > 200 Sec (23.4-35.0)
[2023-10-08 23:40] VITALS: BP 150/86
[2023-10-09 00:14] LABS: Glucose - Point of Care 104 mg/dl (70-99)
[2023-10-09] MEDS: OFIRMEV 100 IV ×3 (03:27→16:06)
--- NOTE | 2023-10-09 03:27 | W.PN.UPDATE ---
Update Note
Progress Note Update
RN reports pt wanting TPN off. Since initiation at 2129 pt feels like abd has gotten more distended.
Voiding ok post tsai removal. bladder scan 0
NGT draining and flushing well.
PT wants to discuss further TPN with surgeon in am
--- NOTE | 2023-10-09 03:39 | PTCARENOTE ---
Pt complaining of her stomach feeling full @0256. Upon observation, Pt's abdomen is distended, tender, and firm. She started TPN @2100 -- with 221mL infused so far. She says that she believes the TPN is causing the distention and is refusing TPN
until she can see the doctor tomorrow. Patient also has NG tube, which has been draining, however with not much output. Checked placement of NG tube and it appears to be in the correct position, while also flushing well. LINOTYPE MACHINIST APPRENTICE notified and TPN placed
on hold.
[2023-10-09 06:00] VITALS: BMI 29.2
[2023-10-09 06:34] LABS: Glucose - Point of Care 96 mg/dl (70-99)
[2023-10-09 06:52] LABS: Hematocrit 33.3 % (37.0-47.0); Hemoglobin 10.9 g/dL (12.0-16.0); Mean Corp Hgb Conc. 32.7 g/dL (33.0-37.0); Mean Corpuscular Hgb 30.8 pg (27.0-31.0); Mean Corpuscular Volume 94.1 fL (81.0-99.0); Mean Platelet Volume 9.8 fL (7.4-10.4); Platelet Count 259 10^3/uL (130-400); Red Blood Cell Count 3.54 10^6/uL (4.20-5.40); Red Cell Dist. Width 14.6 % (11.5-14.5); White Blood Cell Count 9.4 10^3/uL (4.8-10.8)
[2023-10-09 07:02] LABS: INR 1.43; PT 17.2 Sec (11.4-14.6)
[2023-10-09 07:25] LABS: Blood Urea Nitrogen 11 mg/dl (7-17); Calcium 6.9 mg/dl (8.4-10.2); Carbon Dioxide 20 mmol/L (22-30); Chloride 115 mmol/L (98-107); Estimated Creatinine Clearance 53 ml/min; Glucose 93 mg/dl (70-99); Magnesium 2.2 mg/dl (1.6-2.3); Phosphorus 2.1 mg/dl (2.5-4.5); Potassium 3.5 mmol/L (3.5-5.1); Sodium 136 mmol/L (135-145); eGFR > 60.00
[2023-10-09 07:44] VITALS: BP 147/76
[2023-10-09] MEDS: NSS (PRESERVATIVE FREE) 10 ML IV (08:23)
[2023-10-09] MEDS: PROTONIX IV 40 MG IV (08:23)
[2023-10-09] MEDS: CALCIUM GLUCONATE 100 IV (08:28)
--- NOTE | 2023-10-09 10:06 | W.PN.GS2 ---
Today's Communication / Plan
-
-- NGT clamp trial throughout the day
-- TPN re-ordered
Assessment / Plan
-
83-year-old female with history of chronic rle vte () and open mesh sacrocolpopexy and mid urethral transvaginal tape in 2011 who has been in her usual baseline state of health until she developed the acute onset of abdominal pain last
Sunday into Sunday. CT imaging consistent with adhesive SBO with no improvement with bowel rest.
POD #3 ex lap with AMAN
AFVSS
Labs reviewed
Initial signs of RVF with passage of flatus, abdomen kristin fairly distended with tympany, plan for clamp trials throughout the day with reassessment of clinical improvement tomorrow and possible NGT removal at that time
Protein calorie malnutrition noted, prolonged NPO
--Continue NGT clamp trial throughout the day
--Continue TPN, reordered, discussed with patient utility
--Haas removed for voiding trial
--Increase activity/ambulate. OOB. Will consult PT
--Trend labs
--Continue scheduled Ofirmev/Toradol with prn morphine
--If H/H stable this morning, OK to resume therapeutic AC with heparin gtt NO boluses, would wait on Coumadin until NGT removed and tolerating PO intake
--IV Protonix for GI ppx while NGT in place
Subjective Data
-
Date of Service: October 09, 2023
Denies worse abdominal pain. Abdominal still feels distended. No nausea or vomiting. Reports passing flatus, no BM. Voiding. Minimal ambulation.
Objective Data
-
Intake and Output
10/08/23 10/09/23 10/10/23
06:59 06:59 06:59
Intake Total 2690 / 2690 955 / 955
Output Total 1040 / 1040 175 / 175
Balance 1650 / 1650 780 / 780
Intake:
IV fluids (Total) 2300 / 2300 800 / 800
IV piggybacks 300 / 300
Amount instilled into GI Tube ( 155 / 155
Total)
[place] Sump 155 / 155
Output:
Gastrointestinal tube output ( 290 / 290 175 / 175
Total)
[place] Sump 290 / 290 175 / 175
Urine, Haas 750 / 750
Other:
Number of approximated LARGE 1
amounts of urine
Vital Signs
Temp Pulse Resp BP Pulse Ox
98 F 88 24 147/76 95
10/09/23 07:44 10/09/23 07:44 10/09/23 07:44 10/09/23 07:44 10/09/23 07:44
Lab Results
10/09/23 06:26
10/09/23 06:25
Calcium 6.9 mg/dl (8.4-10.2) L* 10/09/23 06:25
Phosphorus 2.1 mg/dl (2.5-4.5) L 10/09/23 06:25
Magnesium 2.2 mg/dl (1.6-2.3) 10/09/23 06:25
Total Bilirubin 0.6 mg/dl (0.2-1.3) 10/05/23 05:46
Direct Bilirubin 0.0 mg/dl (0.0-0.4) 10/05/23 05:46
AST 25 U/L (14-36) 10/05/23 05:46
ALT 17 U/L (0-35) 10/05/23 05:46
Alkaline Phosphatase 51 U/L (38-126) 10/05/23 05:46
Total Protein 5.5 g/dl (6.3-8.2) L D 10/05/23 05:46
Albumin 3.4 g/dl (3.5-5.0) L 10/05/23 05:46
Physical Exam
-
Gen: NAD
Abd: soft, distended, tympanitic, minimal tenderness, non-peritoneal, midline dressing with strike through
[2023-10-09 11:23] VITALS: BP 159/77; PULSE 86; O2SAT 94
[2023-10-09 12:02] LABS: Glucose - Point of Care 89 mg/dl (70-99)
--- NOTE | 2023-10-09 12:23 | W.PN.HOSP.TC ---
Today's Communication/Plan
-
see A/P
Assessment / Plan
Assessment / Plan
A/P:
# SBO
s/p ex lap with AMAN 10/06/[address]ICC and started TPN 10/07
NGT clamp trial today, cont TPN
restarted OAC Coumadin with heparin bridge
apprec surgery
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
heparin drip to bridge back to Coumadin
daily INR
# Essential HTN
IV hydralazine PRN
DVT ppx: heparin drip bridge back to WAIST FITTER Coumadin
Full code
Anticipated Discharge: > 48 hours
Subjective/Interval History
-
Date of Service: October 09, 2023
Objective Data
-
Labs:
Laboratory Results
10/09/23 10/09/23 10/09/23
06:25 06:26 10:18
WBC 9.4
Hgb 10.9 L
Hct 33.3 L
Plt Count 259
PT 17.2 H
INR 1.43
APTT 99.0 H
Sodium 136
Potassium 3.5
Chloride 115 H
Carbon Dioxide 20 L
BUN 11
Creatinine 0.5 L
Glucose 93
Calcium 6.9 L*
10/09/23
17:00
WBC
Hgb
Hct
Plt Count
PT
INR
APTT Pending
Sodium
Potassium
Chloride
Carbon Dioxide
BUN
Creatinine
Glucose
Calcium
Vital Signs:
Vital Signs
Temp Pulse Resp BP Pulse Ox
36.6 C 88 24 147/76 95
10/09/23 07:44 10/09/23 07:44 10/09/23 07:44 10/09/23 07:44 10/09/23 07:44
I&O
10/08/23 10/09/23 10/10/23
06:59 06:59 06:59
Intake Total 2690 / 2690 955 / 955
Output Total 1040 / 1040 175 / 175
Balance 1650 / 1650 780 / 780
Review of Systems
-
All other systems: Reviewed and negative
Physical Exam
-
General: Well Developed, Well Nourished, No Apparent Distress and Comfortable
HEENT: Normocephalic, Atraumatic and Other (NGT clamped)
Respiratory: Clear to Auscultation and Non Labored Respirations; Negative Accessory Resp Muscle Use
Cardiac: Regular Rhythm and S1/S2; Negative Murmur
GI: Soft, Nontender and Nondistended; Negative Normal Bowel Sounds (hypoactive)
Musculoskeletal: No Clubbing, No Cyanosis and No Edema
Skin: Warm
Neuro: Awake
Psych: Calm and Intact Judgement/Insight
Data Reviewed
-
Labs: Labs Reviewed by me
--- NOTE | 2023-10-09 13:24 | CM ---
Patient seen at bedside, Patient with NG tube and TPN. Patient plan is for discharge home when medically appropriate. Patient may need [facility] services pending continued need for TPN. CM will continue to follow for discharge planning needs.
Plan; home with [facility] pending TPN needs.
[2023-10-09 15:24] VITALS: BP 133/67
[2023-10-09 17:28] LABS: APTT 47.3 Sec (23.4-35.0)
[2023-10-09 18:05] LABS: Glucose - Point of Care 82 mg/dl (70-99)
[2023-10-09] MEDS: Parenteral Nutrition, Central 1500 IV (22:56)
[2023-10-09 23:25] VITALS: BP 141/64
[2023-10-10 00:47] LABS: APTT 132.2 Sec (23.4-35.0)
[2023-10-10 00:54] LABS: Glucose - Point of Care 138 mg/dl (70-99)
[2023-10-10] MEDS: HEPARIN 25000 UNITS/250 ML IV (05:22)
[2023-10-10 06:48] LABS: Glucose - Point of Care 138 mg/dl (70-99)
[2023-10-10 07:30] VITALS: BP 155/71
[2023-10-10 08:49] LABS: Hematocrit 30.4 % (37.0-47.0); Hemoglobin 10.6 g/dL (12.0-16.0); Mean Corp Hgb Conc. 34.9 g/dL (33.0-37.0); Mean Corpuscular Hgb 32.1 pg (27.0-31.0); Mean Corpuscular Volume 92.1 fL (81.0-99.0); Mean Platelet Volume 9.9 fL (7.4-10.4); Platelet Count 266 10^3/uL (130-400); Red Cell Dist. Width 14.8 % (11.5-14.5); White Blood Cell Count 8.3 10^3/uL (4.8-10.8)
[2023-10-10 09:01] LABS: INR 1.48
[2023-10-10 09:08] LABS: APTT 71.6 Sec (23.4-35.0)
[2023-10-10] MEDS: NSS (PRESERVATIVE FREE) 10 ML IV (09:24)
[2023-10-10] MEDS: PROTONIX IV 40 MG IV (09:24)
--- NOTE | 2023-10-10 11:24 | CM ---
Patient seen bedside.
NGT for d/c today.
Diet advancement.
Continues on TPN.
Patient denies home care needs at this time.
Plan: home no needs anticipated.
[2023-10-10 12:13] LABS: Glucose - Point of Care 130 mg/dl (70-99)
[2023-10-10 12:27] LABS: ALT (SGPT) 20 U/L (0-35); AST (SGOT) 31 U/L (14-36); Albumin 2.7 g/dl (3.5-5.0); Alkaline Phosphatase 77 U/L (38-126); Blood Urea Nitrogen 13 mg/dl (7-17); Calcium 7.9 mg/dl (8.4-10.2); Carbon Dioxide 23 mmol/L (22-30); Chloride 108 mmol/L (98-107); Estimated Creatinine Clearance 53 ml/min; Glucose 143 mg/dl (70-99); Phosphorus 1.7 mg/dl (2.5-4.5); Potassium 3.3 mmol/L (3.5-5.1); Sodium 135 mmol/L (135-145); Total Bilirubin 0.4 mg/dl (0.2-1.3); Total Protein 4.8 g/dl (6.3-8.2); eGFR > 60.00
--- NOTE | 2023-10-10 12:48 | W.PN.HOSP.TC ---
Today's Communication/Plan
-
see A/P
Assessment / Plan
Assessment / Plan
A/P:
# SBO
s/p ex lap with AMAN 10/06/2023
started TPN 10/07, TPN per surgery
NGT removed, clear liquid per surgery
restarted OAC Coumadin with heparin bridge
apprec surgery
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
heparin drip to bridge back to Coumadin
daily INR
# Essential HTN
IV hydralazine PRN
DVT ppx: heparin drip bridge back to DIRECTOR OF CORPORATE REAL ESTATE Coumadin
Full code
Anticipated Discharge: > 48 hours
Subjective/Interval History
-
Date of Service: October 10, 2023
Objective Data
-
Labs:
Laboratory Results
10/10/23 10/10/23 10/10/23
00:22 08:35 10:20
WBC 8.3
Hgb 10.6 L
Hct 30.4 L
Plt Count 266
PT 18.0 H
INR 1.48
APTT 132.2 H 71.6 H
Sodium Cancelled Cancelled
Potassium Cancelled Cancelled
Chloride Cancelled Cancelled
Carbon Dioxide Cancelled Cancelled
BUN Cancelled Cancelled
Creatinine Cancelled Cancelled
Glucose Cancelled Cancelled
Calcium Cancelled Cancelled
Total Bilirubin Cancelled
AST Cancelled
ALT Cancelled
Alkaline Phosphatase Cancelled
10/10/23 10/10/23
11:44 15:28
WBC
Hgb
Hct
Plt Count
PT
INR
APTT Pending
Sodium 135
Potassium 3.3 L
Chloride 108 H
Carbon Dioxide 23
BUN 13
Creatinine 0.5 L
Glucose 143 H
Calcium 7.9 L
Total Bilirubin 0.4
AST 31
ALT 20
Alkaline Phosphatase 77
Vital Signs:
Vital Signs
Temp Pulse Resp BP Pulse Ox
36.9 C 84 20 155/71 95
10/10/23 07:30 10/10/23 07:30 10/10/23 07:30 10/10/23 07:30 10/10/23 07:30
I&O
10/09/23 10/10/23 10/11/23
06:59 06:59 06:59
Intake Total 955 / 955 120 / 120
Output Total 175 / 175
Balance 780 / 780 120 / 120
Review of Systems
-
All other systems: Reviewed and negative
Physical Exam
-
General: Well Developed, Well Nourished, No Apparent Distress and Comfortable
HEENT: Normocephalic, Atraumatic and Other (NGT removed )
Respiratory: Clear to Auscultation and Non Labored Respirations; Negative Accessory Resp Muscle Use
Cardiac: Regular Rhythm and S1/S2; Negative Murmur
GI: Soft, Nontender, Nondistended and Normal Bowel Sounds
Musculoskeletal: No Clubbing, No Cyanosis and No Edema
Skin: Warm
Neuro: Awake
Psych: Calm and Intact Judgement/Insight
Data Reviewed
-
Labs: Labs Reviewed by me
--- NOTE | 2023-10-10 12:53 | W.PN.GS2 ---
Addendum entered and electronically signed by Jorge Agosto MD 10/10/23 14:51:
CDI query:
Severe protein calorie malnutrition - energy intake <50% for 5 days; albumin 2.7
Original Note:
Today's Communication / Plan
-
DC NGT
DC protonix
Start clears
Cont TPN for today
Assessment / Plan
-
83-year-old female with history of chronic rle vte () and open mesh sacrocolpopexy and mid urethral transvaginal tape in 2011 who has been in her usual baseline state of health until she developed the acute onset of abdominal pain last
Sunday into Sunday. CT imaging consistent with adhesive SBO with no improvement with bowel rest.
POD #4 ex lap with AMAN
AFVSS
Labs reviewed
Passed clamp trial
Protein calorie malnutrition noted, prolonged NPO
--DC NGT
--Continue TPN, reordered, discussed with patient utility
--Start clears
--Increase activity/ambulate. OOB. Will consult PT
--Trend labs
--Continue scheduled Ofirmev/Toradol with prn morphine
--OK to resume therapeutic AC with heparin gtt NO boluses, likely can restart coumadin tomorrow if no further issues
--DC protonix
Subjective Data
-
Date of Service: October 10, 2023
AFVSS, passing flatus, hungry, denies pain, voiding, tolerated clamping for ~24 hrs
Objective Data
-
Intake and Output
10/09/23 10/10/23 10/11/23
06:59 06:59 06:59
Intake Total 955 / 955 120 / 120
Output Total 175 / 175
Balance 780 / 780 120 / 120
Intake:
Oral fluids 120 / 120
IV fluids (Total) 800 / 800
Amount instilled into GI Tube ( 155 / 155
Total)
[place] Sump 155 / 155
Output:
Gastrointestinal tube output ( 175 / 175
Total)
[place] Sump 175 / 175
Other:
Number of approximated MODERATE 3
amounts of urine
Number of approximated LARGE 1
amounts of urine
Vital Signs
Temp Pulse Resp BP Pulse Ox
98.4 F 84 20 155/71 95
10/10/23 07:30 10/10/23 07:30 10/10/23 07:30 10/10/23 07:30 10/10/23 07:30
Lab Results
10/10/23 08:35
10/10/23 11:44
Calcium 7.9 mg/dl (8.4-10.2) L 10/10/23 11:44
Phosphorus 1.7 mg/dl (2.5-4.5) L 10/10/23 11:44
Magnesium 2.0 mg/dl (1.6-2.3) 10/10/23 11:44
Total Bilirubin 0.4 mg/dl (0.2-1.3) 10/10/23 11:44
Direct Bilirubin 0.0 mg/dl (0.0-0.4) 10/05/23 05:46
AST 31 U/L (14-36) 10/10/23 11:44
ALT 20 U/L (0-35) 10/10/23 11:44
Alkaline Phosphatase 77 U/L (38-126) 10/10/23 11:44
Total Protein 4.8 g/dl (6.3-8.2) L 10/10/23 11:44
Albumin 2.7 g/dl (3.5-5.0) L 10/10/23 11:44
Physical Exam
-
Gen: NAD
Abd: softly distended, nt, aquacel OK
[2023-10-10] MEDS: KCL 270 MEQ IV (13:29)
--- NOTE | 2023-10-10 14:00 | PN.CDI ---
CDI
- -
CDI:
Physician Documentation Request
Admit Date: 10/04/23 20:09
Dear Doctor Triny,
Surgery progress notes states 'Protein calorie malnutrition noted, prolonged NPO' from 10/06-10/09
To ensure the quality of the medical record, based on the above information and the recognized standards for malnutrition , could you please verify in your progress notes which of the following responses best reflects the patient's nutritional
status:
(Specify severity) Malnutrition is/was present and is a clinical diagnosis (please provide additional support in the medical record)
No nutritional deficiency
Other (please specify)
[place] Criteria ([facility] 2017)
2 or more criteria must be present for either
non severe or severe malnutrition
Note that the criteria differs related to the
presence of an acute or chronic illness
Acute Illness Chronic Illness
Energy Intake Non Severe: <75% for >7 days Non Severe: <75% for >1 month
Severe: <50% for >5 days Severe: <75% for >1 month
Weight Loss Non Severe: 1-2% over 1 week Non Severe: 5% over 1 month
5% over 1 month 7.5% over 3 months
7.5% over 3 months 10% over 6 months
1 year N/A 20% over 1 year
Severe: >2% over 1 week Severe: >5% over 1 month
>5% over 1 month >7.5% over 3 months
>7.5% over 3 months >10% over 6 months
1 year N/A >20% over 1 year
Body Fat Non Severe: Mild Decrease Non Severe: Mild Loss
Severe: Moderate Decrease Severe: Severe Loss
Muscle Mass Non Severe: Mild Decrease Non Severe: Mild Loss
Severe: Moderate Decrease Severe: Severe Loss
Fluid Accumulation Non Severe: Mild Accumulation Non Severe: Mild Accumulation
Severe: Moderate to severe Severe: Moderate to severe
accumulation accumulation
Reduced Chief Projectionist Strength Non Severe: N/A Non Severe: N/A
Severe: Measurably reduced Severe: Measurably reduced
Additional criteria that can be used to Determine if Mild or Moderate Malnutrition ([employer] Manual 2018)
Mild Moderate Severe
Albumin gm/dl <3.0 gm/dl <2.5 gm/dl <2.0 gm/dl
Pre Albumin mg/dl <15 gm/dl <10 mg/dl <5.0 mg/dl
BMI <18.5 <17 <16
Use of terms such as suspected, likely, concern for, or probable (associated with a specific diagnosis that is being evaluated, monitored, or treated as if it exists) are acceptable and can be coded in the inpatient setting, when documented at the
time of discharge.
Thank you,
Katerina Serrato RN, BSN
CDI Specialist
tiger text
Please use your independent medical judgment in providing your response.
[2023-10-10 15:59] VITALS: BP 168/87
[2023-10-10 17:03] LABS: Glucose - Point of Care 141 mg/dl (70-99)
[2023-10-10] MEDS: Parenteral Nutrition, Central 1500 IV (21:31)
[2023-10-10 22:42] LABS: APTT 90.9 Sec (23.4-35.0)
[2023-10-10 23:55] VITALS: BP 156/76
[2023-10-11 05:37] LABS: Glucose - Point of Care 98 mg/dl (70-99)
[2023-10-11 05:40] VITALS: BMI 28.8
[2023-10-11 06:38] LABS: Hemoglobin 11.4 g/dL (12.0-16.0); Mean Corp Hgb Conc. 33.5 g/dL (33.0-37.0); Mean Corpuscular Hgb 31.2 pg (27.0-31.0); Mean Corpuscular Volume 93.2 fL (81.0-99.0); Mean Platelet Volume 10.4 fL (7.4-10.4); Platelet Count 272 10^3/uL (130-400); Red Blood Cell Count 3.65 10^6/uL (4.20-5.40); Red Cell Dist. Width 14.7 % (11.5-14.5); White Blood Cell Count 9.5 10^3/uL (4.8-10.8)
[2023-10-11 06:48] LABS: INR 1.16; PT 14.8 Sec (11.4-14.6)
[2023-10-11 06:50] LABS: APTT 60.9 Sec (23.4-35.0)
[2023-10-11 07:20] LABS: Blood Urea Nitrogen 11 mg/dl (7-17); Calcium 8.1 mg/dl (8.4-10.2); Carbon Dioxide 22 mmol/L (22-30); Chloride 111 mmol/L (98-107); Estimated Creatinine Clearance 52 ml/min; Glucose 117 mg/dl (70-99); Magnesium 2.2 mg/dl (1.6-2.3); Potassium 4.4 mmol/L (3.5-5.1); Sodium 137 mmol/L (135-145); eGFR > 60.00
[2023-10-11 07:30] VITALS: BP 141/81
[2023-10-11 07:38] LABS: Glucose - Point of Care 116 mg/dl (70-99)
[2023-10-11] MEDS: PROTONIX IV 40 MG IV ×2 (08:28)
[2023-10-11] MEDS: HEPARIN 25000 UNITS/250 ML IV (08:28)
[2023-10-11 08:45] VITALS: BP 141/81
[2023-10-11] MEDS: NSS (PRESERVATIVE FREE) 10 ML IV (09:20)
--- NOTE | 2023-10-11 09:45 | W.PN.GS2 ---
Today's Communication / Plan
-
`
Assessment / Plan
-
83-year-old female with history of chronic rle vte () and open mesh sacrocolpopexy and mid urethral transvaginal tape in 2011 who has been in her usual baseline state of health until she developed the acute onset of abdominal pain last
Sunday into Sunday. CT imaging consistent with adhesive SBO with no improvement with bowel rest.
POD #5 ex lap with AMAN
AFVSS
severe protein calorie malnutrition noted, prolonged NPO
returning signs of GI function but not robust yet
Plan:
--multimodal pain control options
--hold on clears until distention improves
--Continue TPN, reordered - max concentrate as okay for clear liquids as well
--OOTC/ambulate as tolerated
--okay to shower
--OK to resume therapeutic AC with heparin gtt NO boluses, resumed coumadin 5mg PO qhs
Subjective Data
-
Date of Service: October 11, 2023
pt seen and examined
sil NGT removal but feels distended
no nausea
occasional flatus, no BM
post op pain minimal
appetite has not returned
Objective Data
-
Intake and Output
10/10/23 10/11/23 10/12/23
06:59 06:59 06:59
Intake Total 120 / 120 600 / 600
Output Total 1025 / 1025
Balance 120 / 120 -425 / -425
Intake:
Oral fluids 120 / 120 0 / 0
TPN/PPN 600 / 600
Output:
Straight cath output 1025 / 1025
Other:
Number of approximated SMALL 2
amounts of urine
Number of approximated MODERATE 3
amounts of urine
Vital Signs
Temp Pulse Resp BP Pulse Ox
99.0 F 90 22 141/81 97
10/11/23 07:30 10/11/23 07:30 10/11/23 07:30 10/11/23 07:30 10/11/23 07:30
Lab Results
10/11/23 04:53
10/11/23 04:53
Calcium 8.1 mg/dl (8.4-10.2) L 10/11/23 04:53
Phosphorus 3.0 mg/dl (2.5-4.5) 10/11/23 04:53
Magnesium 2.2 mg/dl (1.6-2.3) 10/11/23 04:53
Total Bilirubin 0.4 mg/dl (0.2-1.3) 10/10/23 11:44
Direct Bilirubin 0.0 mg/dl (0.0-0.4) 10/05/23 05:46
AST 31 U/L (14-36) 10/10/23 11:44
ALT 20 U/L (0-35) 10/10/23 11:44
Alkaline Phosphatase 77 U/L (38-126) 10/10/23 11:44
Total Protein 4.8 g/dl (6.3-8.2) L 10/10/23 11:44
Albumin 2.7 g/dl (3.5-5.0) L 10/10/23 11:44
Physical Exam
-
NAD AAOx3
ABD: softly distended, mild TTP at incision, incision with jose, Aquacel dressing removed
[2023-10-11 12:29] LABS: Glucose - Point of Care 100 mg/dl (70-99)
--- NOTE | 2023-10-11 12:33 | W.PN.HOSP.TC ---
Today's Communication/Plan
-
see A/P
Assessment / Plan
Assessment / Plan
A/P:
# SBO
s/p ex lap with AMAN 10/06/2023
started TPN 10/07, cont TPN per surgery
NGT removed, diet per GS, cont clear liquid without further advancement per GS due to abd distention
ambulate as tolerated
Cont OAC Coumadin with heparin bridge
apprec surgery
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
heparin drip to bridge back to Coumadin
daily INR
# Essential HTN
IV hydralazine PRN
DVT ppx: heparin drip bridge back to MEDIATOR Coumadin
Full code
DW GS
Anticipated Discharge: > 48 hours
Subjective/Interval History
-
Date of Service: October 11, 2023
Objective Data
-
Labs:
Laboratory Results
10/11/23 10/11/23
04:53 13:30
WBC 9.5
Hgb 11.4 L
Hct 34.0 L
Plt Count 272
PT 14.8 H
INR 1.16
APTT 60.9 H Pending
Sodium 137
Potassium 4.4 D
Chloride 111 H
Carbon Dioxide 22
BUN 11
Creatinine 0.5 L
Glucose 117 H
Calcium 8.1 L
Vital Signs:
Vital Signs
Temp Pulse Resp BP Pulse Ox
37.2 C 90 22 141/81 97
10/11/23 07:30 10/11/23 07:30 10/11/23 07:30 10/11/23 07:30 10/11/23 07:30
I&O
10/10/23 10/11/23 10/12/23
06:59 06:59 06:59
Intake Total 120 / 120 600 / 600
Output Total 1025 / 1025
Balance 120 / 120 -425 / -425
Review of Systems
-
All other systems: Reviewed and negative
Physical Exam
-
General: Well Developed, Well Nourished, No Apparent Distress, Comfortable and Conversant
HEENT: Normocephalic, Atraumatic, Nose Appears Normal and Ears Appear Normal
Respiratory: Clear to Auscultation and Non Labored Respirations; Negative Accessory Resp Muscle Use
Cardiac: Regular Rhythm and S1/S2; Negative Murmur
GI: Soft, Nontender, Normal Bowel Sounds and Distended
Musculoskeletal: No Clubbing, No Cyanosis and No Edema
Skin: Warm
Neuro: Awake
Psych: Calm and Intact Judgement/Insight
Data Reviewed
-
Labs: Labs Reviewed by me
[2023-10-11 13:11] LABS: APTT 117.8 Sec (23.4-35.0)
--- NOTE | 2023-10-11 15:15 | CM ---
Patient seen bedside.
Continues on TPN.
per patient tolerating liquids, drinking slowly.
Plan: home no needs anticipated.
[2023-10-11 15:48] VITALS: BP 160/93
[2023-10-11] MEDS: COUMADIN 5 MG PO (16:47)
[2023-10-11 16:57] LABS: Glucose - Point of Care 126 mg/dl (70-99)
[2023-10-11 20:05] LABS: APTT 75.5 Sec (23.4-35.0)
[2023-10-11] MEDS: Parenteral Nutrition, Central 1020 IV (21:14)
[2023-10-11 21:34] LABS: Glucose - Point of Care 108 mg/dl (70-99)
[2023-10-11 22:00] VITALS: BMI 28.7
[2023-10-11 23:00] VITALS: BP 149/72
[2023-10-12 00:07] LABS: Glucose - Point of Care 115 mg/dl (70-99)
[2023-10-12 01:53] LABS: Hemoglobin 9.9 g/dL (12.0-16.0); Mean Corpuscular Hgb 30.7 pg (27.0-31.0); Mean Corpuscular Volume 93.2 fL (81.0-99.0); Mean Platelet Volume 8.8 fL (7.4-10.4); Platelet Count 230 10^3/uL (130-400); Red Blood Cell Count 3.22 10^6/uL (4.20-5.40); Red Cell Dist. Width 15.2 % (11.5-14.5); White Blood Cell Count 7.1 10^3/uL (4.8-10.8)
[2023-10-12 02:04] LABS: INR 1.14; PT 14.7 Sec (11.4-14.6)
[2023-10-12 02:15] LABS: Blood Urea Nitrogen 12 mg/dl (7-17); Calcium 8.1 mg/dl (8.4-10.2); Carbon Dioxide 24 mmol/L (22-30); Chloride 111 mmol/L (98-107); Estimated Creatinine Clearance 52 ml/min; Glucose 114 mg/dl (70-99); Magnesium 2.1 mg/dl (1.6-2.3); Potassium 4.4 mmol/L (3.5-5.1); Sodium 136 mmol/L (135-145); eGFR > 60.00
[2023-10-12 05:33] VITALS: BMI 28.6
[2023-10-12 06:19] LABS: Glucose - Point of Care 104 mg/dl (70-99)
[2023-10-12 07:30] VITALS: BP 158/77
[2023-10-12 07:36] LABS: Glucose - Point of Care 98 mg/dl (70-99)
[2023-10-12 08:21] LABS: APTT 84.3 Sec (23.4-35.0)
[2023-10-12] MEDS: HEPARIN 25000 UNITS/250 ML IV (08:36)
--- NOTE | 2023-10-12 09:30 | W.PN.GS2 ---
Addendum entered and electronically signed by Bernard Buitrago MD 10/12/23 12:25:
Patient seen and examined. Agree with assessment plan as documented below.
No complaints. Tolerated clears, denies any nausea or vomiting, denies any increased abdominal distention or fullness. Passing flatus, no BM. Ambulating. Voiding. Afebrile.
Gen: NAD
Abd: soft, NT, distended, tympanitic, non-peritoneal, incision c/d/i
83-year-old female with history of chronic rle vte () and open mesh sacrocolpopexy and mid urethral transvaginal tape in 2011 who has been in her usual baseline state of health until she developed the acute onset of abdominal pain last
Sunday into Sunday. CT imaging consistent with adhesive SBO with no improvement with bowel rest.
POD #6�ex lap with AMAN
AFVSS
returning signs of GI function but not robust yet
Plan:
--multimodal pain control options
--advance to FLD and follow for tolerance
--Continue TPN, reordered - max concentrate as okay for full liquids as well.
--OOTC/ambulate as tolerated
--okay to shower
--OK to continue therapeutic AC with heparin gtt NO boluses, resumed coumadin 5mg PO qhs
Original Note:
Today's Communication / Plan
-
FLD/TPN
Assessment / Plan
-
83-year-old female with history of chronic rle vte () and open mesh sacrocolpopexy and mid urethral transvaginal tape in 2011 who has been in her usual baseline state of health until she developed the acute onset of abdominal pain last
Sunday into Sunday. CT imaging consistent with adhesive SBO with no improvement with bowel rest.
POD #6 ex lap with AMAN
AFVSS
returning signs of GI function but not robust yet
Plan:
--multimodal pain control options
--advance to FLD and follow for tolerance
--Continue TPN, reordered - max concentrate as okay for full liquids as well.
--OOTC/ambulate as tolerated
--okay to shower
--OK to continue therapeutic AC with heparin gtt NO boluses, resumed coumadin 5mg PO qhs
Subjective Data
-
Date of Service: October 12, 2023
Patient seen and examined at bedside with Dr. Buitrago. Passing some minimal flatus, but no stools yet. Denies n/v. Tolerating clears.
Objective Data
-
Intake and Output
10/11/23 10/12/23 10/13/23
06:59 06:59 06:59
Intake Total 600 / 600 1150 / 1150
Output Total 1025 / 1025
Balance -425 / -425 1150 / 1150
Intake:
Oral fluids 0 / 0 480 / 480
IV piggybacks 120 / 120
TPN/PPN 600 / 600 550 / 550
Output:
Straight cath output 1025 / 1025
Other:
Number of approximated SMALL 2
amounts of urine
Number of approximated MODERATE 2
amounts of urine
Vital Signs
Temp Pulse Resp BP Pulse Ox
98.7 F 92 16 158/77 98
10/12/23 07:30 10/12/23 07:30 10/12/23 07:30 10/12/23 07:30 10/12/23 07:30
Lab Results
10/12/23 01:46
10/12/23 01:46
Calcium 8.1 mg/dl (8.4-10.2) L 10/12/23 01:46
Phosphorus 3.0 mg/dl (2.5-4.5) 10/11/23 04:53
Magnesium 2.1 mg/dl (1.6-2.3) 10/12/23 01:46
Total Bilirubin 0.4 mg/dl (0.2-1.3) 10/10/23 11:44
Direct Bilirubin 0.0 mg/dl (0.0-0.4) 10/05/23 05:46
AST 31 U/L (14-36) 10/10/23 11:44
ALT 20 U/L (0-35) 10/10/23 11:44
Alkaline Phosphatase 77 U/L (38-126) 10/10/23 11:44
Total Protein 4.8 g/dl (6.3-8.2) L 10/10/23 11:44
Albumin 2.7 g/dl (3.5-5.0) L 10/10/23 11:44
Physical Exam
-
NAD AAOx3
ABD: softly distended, mild TTP at incision
Incision well approximated with jose intact, no erythema
--- NOTE | 2023-10-12 10:49 | W.PN.HOSP.TC ---
Today's Communication/Plan
-
see A/P
Assessment / Plan
Assessment / Plan
A/P:
# SBO
s/p ex lap with AMAN 10/06/2023
started TPN 10/07, cont TPN per surgery
NGT removed, diet per GS, cont clear liquid until further advanced by GS
ambulate as tolerated
Cont OAC Coumadin with heparin bridge
apprec surgery
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
heparin drip to bridge back to Coumadin
daily INR
# Essential HTN
IV hydralazine PRN
DVT ppx: heparin drip bridge back to [employer] Coumadin
Full code
DW GS
Anticipated Discharge: 24 - 48 hours
Subjective/Interval History
-
Date of Service: October 12, 2023
Objective Data
-
Labs:
Laboratory Results
10/12/23 10/12/23 10/12/23
01:46 01:46 01:46
WBC 7.1
Hgb 9.9 L
Hct 30.0 L
Plt Count 230
PT Cancelled 14.7 H
INR Cancelled 1.14
APTT 111.0 H
Sodium 136
Potassium 4.4
Chloride 111 H
Carbon Dioxide 24
BUN 12
Creatinine 0.4 L
Glucose 114 H
Calcium 8.1 L
10/12/23
07:48
WBC
Hgb
Hct
Plt Count
PT
INR
APTT 84.3 H
Sodium
Potassium
Chloride
Carbon Dioxide
BUN
Creatinine
Glucose
Calcium
Vital Signs:
Vital Signs
Temp Pulse Resp BP Pulse Ox
37.1 C 92 16 158/77 98
10/12/23 07:30 10/12/23 07:30 10/12/23 07:30 10/12/23 07:30 10/12/23 07:30
I&O
10/11/23 10/12/23 10/13/23
06:59 06:59 06:59
Intake Total 600 / 600 1150 / 1150
Output Total 1025 / 1025
Balance -425 / -425 1150 / 1150
Review of Systems
-
All other systems: Reviewed and negative
Physical Exam
-
General: Well Developed, Well Nourished, No Apparent Distress, Comfortable and Conversant
HEENT: Normocephalic, Atraumatic, Nose Appears Normal and Ears Appear Normal
Respiratory: Clear to Auscultation and Non Labored Respirations; Negative Accessory Resp Muscle Use
Cardiac: Regular Rhythm and S1/S2; Negative Murmur
GI: Soft, Nontender, Normal Bowel Sounds and Distended
Musculoskeletal: No Clubbing, No Cyanosis and No Edema
Skin: Warm
Neuro: Awake
Psych: Calm and Intact Judgement/Insight
Data Reviewed
-
Labs: Labs Reviewed by me
[2023-10-12 12:04] LABS: Glucose - Point of Care 99 mg/dl (70-99)
[2023-10-12 15:00] VITALS: BP 146/66
[2023-10-12] MEDS: COUMADIN 5 MG PO (16:48)
[2023-10-12 16:58] LABS: Glucose - Point of Care 128 mg/dl (70-99)
[2023-10-12] MEDS: Parenteral Nutrition, Central 1020 IV (21:25)
[2023-10-12 23:00] VITALS: BP 145/77
[2023-10-13 00:11] LABS: Glucose - Point of Care 105 mg/dl (70-99)
[2023-10-13 06:00] VITALS: BMI 27.9
[2023-10-13 06:16] LABS: Glucose - Point of Care 107 mg/dl (70-99)
[2023-10-13 06:39] LABS: Hematocrit 29.7 % (37.0-47.0); Mean Corp Hgb Conc. 33.7 g/dL (33.0-37.0); Mean Corpuscular Hgb 31.3 pg (27.0-31.0); Mean Corpuscular Volume 93.1 fL (81.0-99.0); Mean Platelet Volume 9.4 fL (7.4-10.4); Platelet Count 287 10^3/uL (130-400); Red Blood Cell Count 3.19 10^6/uL (4.20-5.40); Red Cell Dist. Width 15.9 % (11.5-14.5); White Blood Cell Count 9.6 10^3/uL (4.8-10.8)
[2023-10-13 06:47] LABS: INR 1.25; PT 15.6 Sec (11.4-14.6)
[2023-10-13 06:49] LABS: APTT 99.6 Sec (23.4-35.0)
[2023-10-13 07:00] VITALS: BP 134/73
[2023-10-13 07:05] LABS: Blood Urea Nitrogen 15 mg/dl (7-17); Calcium 8.9 mg/dl (8.4-10.2); Carbon Dioxide 26 mmol/L (22-30); Chloride 107 mmol/L (98-107); Estimated Creatinine Clearance 51 ml/min; Glucose 103 mg/dl (70-99); Magnesium 2.1 mg/dl (1.6-2.3); Sodium 134 mmol/L (135-145); eGFR > 60.00
[2023-10-13] MEDS: HEPARIN 25000 UNITS/250 ML IV (08:45)
--- NOTE | 2023-10-13 11:19 | W.PN.HOSP.TC ---
Today's Communication/Plan
-
see A/P
Assessment / Plan
Assessment / Plan
A/P:
# SBO
s/p ex lap with AMAN 10/06/2023
started TPN 10/07, cont TPN per surgery
NGT removed, diet advanced to full liquid , ADAT per surgery
ambulate as tolerated
Cont OAC Coumadin with heparin bridge
apprec surgery
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
heparin drip to bridge back to Coumadin
daily INR
# Essential HTN
IV hydralazine PRN
DVT ppx: heparin drip bridge back to [employer] Coumadin
Full code
Anticipated Discharge: Within 24 hours
Subjective/Interval History
-
Date of Service: October 13, 2023
Objective Data
-
Labs:
Laboratory Results
10/13/23 10/13/23
06:02 12:00
WBC 9.6
Hgb 10.0 L
Hct 29.7 L
Plt Count 287 D
PT 15.6 H
INR 1.25
APTT 99.6 H Pending
Sodium 134 L
Potassium 5.0
Chloride 107
Carbon Dioxide 26
BUN 15
Creatinine 0.5 L
Glucose 103 H
Calcium 8.9
Vital Signs:
Vital Signs
Temp Pulse Resp BP Pulse Ox
36.8 C 103 16 134/73 99
10/13/23 07:00 10/13/23 07:00 10/13/23 07:00 10/13/23 07:00 10/13/23 08:30
I&O
10/12/23 10/13/23 10/14/23
06:59 06:59 06:59
Intake Total 1150 / 1150 3446 / 3446
Balance 1149 / 115 3446 / 3446
Review of Systems
-
All other systems: Reviewed and negative
Physical Exam
-
General: Well Developed, Well Nourished, No Apparent Distress, Comfortable and Conversant
HEENT: Normocephalic, Atraumatic, Nose Appears Normal and Ears Appear Normal
Respiratory: Clear to Auscultation and Non Labored Respirations; Negative Accessory Resp Muscle Use
Cardiac: Regular Rhythm and S1/S2; Negative Murmur
GI: Soft, Nontender, Normal Bowel Sounds and Distended
Musculoskeletal: No Clubbing, No Cyanosis and No Edema
Skin: Warm
Neuro: Awake
Psych: Calm and Intact Judgement/Insight
Data Reviewed
-
Labs: Labs Reviewed by me
[2023-10-13 12:33] LABS: APTT 62.1 Sec (23.4-35.0)
--- NOTE | 2023-10-13 13:01 | W.PN.GS2 ---
Today's Communication / Plan
-
Plan:
--advance to low residue diet
--no more TPN ordered
--OOTC/ambulate as tolerated
--okay to shower
--currently on a heparin bridge until her INR elevates. Hgb stable
Assessment / Plan
-
83-year-old female with history of chronic rle vte () and open mesh sacrocolpopexy and mid urethral transvaginal tape in 2011 who has been in her usual baseline state of health until she developed the acute onset of abdominal pain last
Sunday into Sunday. CT imaging consistent with adhesive SBO with no improvement with bowel rest.
POD #7 ex lap with AMAN
AFVSS
progressing well
Subjective Data
-
Date of Service: October 13, 2023
She has no complaints. She is tolerating a full liquid diet and passing flatus. She denies any nausea.
Objective Data
-
Intake and Output
10/12/23 10/13/23 10/14/23
06:59 06:59 06:59
Intake Total 1150 / 1150 3446 / 3446
Balance 1150 / 1150 3446 / 3446
Intake:
Oral fluids 480 / 480 1080 / 1080
IV piggybacks 120 / 120 1320 / 1320
TPN/PPN 550 / 550 1046 / 1046
Other:
Number of approximated MODERATE 2 3
amounts of urine
Vital Signs
Temp Pulse Resp BP Pulse Ox
98.2 F 103 16 134/73 99
10/13/23 07:00 10/13/23 07:00 10/13/23 07:00 10/13/23 07:00 10/13/23 08:30
Lab Results
10/13/23 06:02
10/13/23 06:02
Calcium 8.9 mg/dl (8.4-10.2) 10/13/23 06:02
Phosphorus 3.0 mg/dl (2.5-4.5) 10/11/23 04:53
Magnesium 2.1 mg/dl (1.6-2.3) 10/13/23 06:02
Total Bilirubin 0.4 mg/dl (0.2-1.3) 10/10/23 11:44
Direct Bilirubin 0.0 mg/dl (0.0-0.4) 10/05/23 05:46
AST 31 U/L (14-36) 10/10/23 11:44
ALT 20 U/L (0-35) 10/10/23 11:44
Alkaline Phosphatase 77 U/L (38-126) 10/10/23 11:44
Total Protein 4.8 g/dl (6.3-8.2) L 10/10/23 11:44
Albumin 2.7 g/dl (3.5-5.0) L 10/10/23 11:44
Physical Exam
-
NAD
Abd: soft, nondistended, no tympany and nontender. The incision is healing well.
[2023-10-13 15:00] VITALS: BP 147/63
[2023-10-13] MEDS: COUMADIN 10 MG PO (16:39)
[2023-10-13 18:47] LABS: APTT 112.9 Sec (23.4-35.0)
[2023-10-13 18:54] LABS: Glucose - Point of Care 90 mg/dl (70-99)
[2023-10-13 20:06] LABS: Glucose - Point of Care 94 mg/dl (70-99)
[2023-10-13] MEDS: ANESTHETIC LOZENGE 1 LOZENGE PO (20:40)
[2023-10-13 23:09] VITALS: BP 125/68
[2023-10-14 06:00] VITALS: BMI 27.0
[2023-10-14 07:39] VITALS: BP 100/61
[2023-10-14 08:04] LABS: Hematocrit 31.2 % (37.0-47.0); Hemoglobin 10.5 g/dL (12.0-16.0); Mean Corp Hgb Conc. 33.7 g/dL (33.0-37.0); Mean Corpuscular Hgb 30.9 pg (27.0-31.0); Mean Corpuscular Volume 91.8 fL (81.0-99.0); Mean Platelet Volume 8.9 fL (7.4-10.4); Platelet Count 377 10^3/uL (130-400); Red Cell Dist. Width 15.8 % (11.5-14.5); White Blood Cell Count 12.7 10^3/uL (4.8-10.8)
[2023-10-14 08:08] LABS: INR 1.33; PT 16.3 Sec (11.4-14.6)
[2023-10-14 08:09] LABS: APTT 66.3 Sec (23.4-35.0)
[2023-10-14 08:55] LABS: Blood Urea Nitrogen 18 mg/dl (7-17); Calcium 9.4 mg/dl (8.4-10.2); Carbon Dioxide 25 mmol/L (22-30); Chloride 103 mmol/L (98-107); Estimated Creatinine Clearance 51 ml/min; Glucose 106 mg/dl (70-99); Potassium 4.6 mmol/L (3.5-5.1); Sodium 132 mmol/L (135-145); eGFR > 60.00
--- NOTE | 2023-10-14 11:31 | W.PN.HOSP.TC ---
Addendum entered and electronically signed by Luisa Draper MD 10/14/23 13:49:
total DC time 35 min
Original Note:
Today's Communication/Plan
-
see A/P
DC home today
Assessment / Plan
Assessment / Plan
A/P:
# SBO
s/p ex lap with AMAN 10/06/2023
started TPN 10/07, now off
NGT removed, abd drain removed
diet advanced to low residue, pt tolerated well
Pt was started with heparin drip for bridging back to Coumadin, will use Lovenox SQ BID for bridging after discharge
informed pt to take Coumadin 10 mg x1 more dose, then back to 5 mg HS after that
Check INR in 3 days with result to PCP and depending on INR level, may DC or continue Lovenox bridging (defer to PCP)
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
Pt was started with heparin drip for bridging back to Coumadin, will use Lovenox SQ BID for bridging after discharge
informed pt to take Coumadin 10 mg x1 more dose, then back to 5 mg HS after that
Check INR in 3 days with result to PCP and depending on INR level, may DC or continue Lovenox bridging (defer to PCP)
# Essential HTN
IV hydralazine PRN
DVT ppx: heparin drip bridge back to [employer] Coumadin
Full code
Anticipated Discharge: Today
Subjective/Interval History
-
Date of Service: October 14, 2023
Objective Data
-
Labs:
Laboratory Results
10/14/23 10/14/23 10/14/23
00:20 07:49 07:49
WBC 12.7 H
Hgb 10.5 L
Hct 31.2 L
Plt Count 377 D
PT 16.3 H
INR 1.33
APTT 144.0 H 66.3 H Cancelled
Sodium 132 L
Potassium 4.6
Chloride 103
Carbon Dioxide 25
BUN 18 H
Creatinine 0.6
Glucose 106 H
Calcium 9.4
10/14/23
14:40
WBC
Hgb
Hct
Plt Count
PT
INR
APTT Pending
Sodium
Potassium
Chloride
Carbon Dioxide
BUN
Creatinine
Glucose
Calcium
Vital Signs:
Vital Signs
Temp Pulse Resp BP Pulse Ox
37.0 C 102 16 100/61 97
10/14/23 07:39 10/14/23 07:39 10/14/23 07:39 10/14/23 07:39 10/14/23 07:39
I&O
10/13/23 10/14/23 10/15/23
06:59 06:59 06:59
Intake Total 3446 / 3446 709 / 709
Balance 3446 / 3446 709 / 709
--- NOTE | 2023-10-14 12:20 | W.PN.CRS1 ---
Today's Communication / Plan
-
ok for dc
Assessment/Plan
-
83-year-old female with history of chronic rle vte () and open mesh sacrocolpopexy and mid urethral transvaginal tape in 2011 who has been in her usual baseline state of health until she developed the acute onset of abdominal pain last
Sunday into Sunday. CT imaging consistent with adhesive SBO with no improvement with bowel rest.
POD #8�ex lap with AMAN
Plan:
--advance to low residue diet
--no more TPN ordered
--OOTC/ambulate as tolerated
--okay to shower
--okay for discharge from our perspective when medically cleared
Subjective Data
Subjective Data
Date of Service: October 14, 2023
Patient states she feels well. She has no complaints.
Objective Data
-
Vital Signs
Temp Pulse Resp BP Pulse Ox
98.6 F 102 16 100/61 97
10/14/23 07:39 10/14/23 07:39 10/14/23 07:39 10/14/23 07:39 10/14/23 07:39
Intake & Output
10/13/23 10/14/23 10/15/23
06:59 06:59 06:59
Intake Total 3446 / 3446 709 / 709
Balance 3446 / 3446 709 / 709
Intake:
Oral fluids 1080 / 1080 600 / 600
IV piggybacks 1320 / 1320 109 / 109
TPN/PPN 1046 / 1046
Other:
Number of approximated MODERATE 3 2
amounts of urine
Lab Results
10/14/23 07:49
10/14/23 07:49
Physical Exam
-
General: No Acute Distress and AOx3
Abdomen: Soft, Non Distended and Non Tender
Skin: Warm and Dry
--- NOTE | 2023-10-14 12:32 | CM ---
Patient seen bedside.
patient increased to LRD diet.
Per patient d/c home today, spouse will transport.
IMM completed.
Patient denies VN needs.
Plan: home no needs
--- NOTE | 2023-10-14 13:32 | W.DCSUMMARY ---
Discharge Summary
Discharge Data
Date of Admission: 10/04/23
Date of Discharge: 10/14/23
-
Pending Results: No
Hospital Course
Principal Diagnosis:
Small bowel obstruction due to adhesion
Chronic Diagnoses:�
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
Essential hypertension
Consultations:�
General surgery
Procedures:�
Ex lap with AMAN 10/06/2023
Clinical course:�
This is a 83-year-old female, with past medical history as stated above, who presented with abdominal pain nausea vomiting.
Problem 1:
Small bowel obstruction due to adhesion.
She underwent ex lap with AMAN on 10/06/2023.
The patient was started with TPN while in the hospital which was subsequently discontinued.
She also had an NG tube placed which was also subsequently discontinued.
She tolerated a low residue diet prior to discharge which she can continue going forward.
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
Her INR was still not therapeutic yet at the time of discharge, INR at 1.33.
She has been informed to use Lovenox SQ BID for bridging after discharge.
The patient has been informed to take Coumadin 10 mg x 1 dose, then resume 5 mg at night after that.
She should check INR level in 3 days with result to her PCP.
Depending on the outpatient INR level, she can continue or discontinue the Lovenox bridging (this can be directed by PCP).
As for the rest of her medical problems, they were stable during her hospital stay.
Discharge Plan
-
Patient Disposition: Home (Routine Discharge)
Condition: Fair
Diet: Low Fiber
Activity: No strenuous activity
Additional Activity: Do not lift more than 15 pounds for the next 4-6 weeks
Driving Restrictions: Drive once comfortable twisting/off narcotics
Bathing Restrictions: OK to Shower
Blood Work: INR in 3 days, result to your PCP
Wound Care: Ok to shower and cleanse your incision gently.
Cover with dry gauze dressing if drainage noted, otherwise ok to leave without a dressing.
Clips will be removed in the office 2-3 weeks after your surgery date.
Activity Restrictions/Additional Instructions:
Call your surgeon if you have worsening abdominal pain, nausea with vomiting or a fever >1005.
Referrals:
Khoi Chambers MD [Active] - in one to two weeks
Eli Craven MD [Family Provider] -
Additional Discharge Medication Instructions: Continue lovenox SQ to bridge back to coumadin
Take coumadin 10 mg x1 dose, then back to 5 mg after that.
Hold your BP meds given your BP appear to be stable without meds
Prescriptions:
New
enoxaparin [Lovenox] 60 mg/0.6 mL syringe
60 mg SC Q12H 7 Days Qty: 8.4 0RF
warfarin 10 mg tablet
10 mg PO ONCE 1 Days Qty: 1 0RF
Continued
atorvastatin 10 mg tablet
10 mg PO QPM
famotidine 20 mg tablet
20 mg PO QPM
warfarin 5 mg tablet
2.5 mg PO TU@1800
warfarin 5 mg tablet
5 mg PO SUMOWETHFRSA@1800
Held
lisinopril 10 mg Tablet
10 mg PO DAILY
Hold Instructions: Resume on 10/24/23. until further directed by your PCP
hydrochlorothiazide 12.5 mg tablet
12.5 mg PO DAILY
Hold Instructions: Resume on 10/24/23. until further directed by your PCP
Discharge Orders:
Discharge Patient (As Directed); Ordered 10/14/23
Ordered By: Luisa Draper
== END 2023-10-14 13:52 | disposition home or self-care (01) | DRG 335 ==
LOC: 4 WEST ACU 20:09
PROVIDERS: Emergency Medicine; Internal Medicine; Registered Nurse; Surgery; ADMITTING PHYSICIAN Internal Medicine; ATTENDING PHYSICIAN Internal Medicine; EMERGENCY PHYSICIAN Emergency Medicine; FAMILY PHYSICIAN Internal Medicine; OTHER PHYSICIAN Surgery
PROC: 0DJD0ZZ Inspection of Lower Intestinal Tract, Open Approach (ICD-10-PCS; 2023-10-06)
PROC: 0D9670Z Drainage of Stomach with Drainage Device, Via Natural or Artificial Opening (ICD-10-PCS; 2023-10-06)
PROC: 3E0M05Z Introduction of Adhesion Barrier into Peritoneal Cavity, Open Approach (ICD-10-PCS; 2023-10-06)
PROC: 0DN80ZZ Release Small Intestine, Open Approach (ICD-10-PCS; 2023-10-06)
PROC: 3E0336Z Introduction of Nutritional Substance into Peripheral Vein, Percutaneous Approach (ICD-10-PCS; 2023-10-08)
PROC: 02HV33Z Insertion of Infusion Device into Superior Vena Cava, Percutaneous Approach (ICD-10-PCS; 2023-10-08)
DX: K56.50 Intestinal adhesions [bands], unspecified as to partial versus complete obstruction (principal); E43 Unspecified severe protein-calorie malnutrition; I10 Essential (primary) hypertension; M19.90 Unspecified osteoarthritis, unspecified site; K21.9 Gastro-esophageal reflux disease without esophagitis; N73.6 Female pelvic peritoneal adhesions (postinfective); M79.89 Other specified soft tissue disorders; K46.9 Unspecified abdominal hernia without obstruction or gangrene; T82.856D Stenosis of peripheral vascular stent, subsequent encounter; Y84.8 Other medical procedures as the cause of abnormal reaction of the patient, or of later complication, without mention of misadventure at the time of the procedure; Y71.2 Prosthetic and other implants, materials and accessory cardiovascular devices associated with adverse incidents; Z88.0 Allergy status to penicillin; Z86.718 Personal history of other venous thrombosis and embolism; Z79.01 Long term (current) use of anticoagulants; Z90.710 Acquired absence of both cervix and uterus; Z68.27 Body mass index [BMI] 27.0-27.9, adult
CPT/HCPCS: 71045; 74018; 74177; 80048; 80053; 82248; 82962; 83605; 83690; 83735; 84100; 84134; 84478; 84484; 85025; 85027; 85610; 85730; 86850; 86900; 86901; 93005; 96361; 96374; 97161; 99285; J1335; Q9967

== ENCOUNTER → 2024-11-25 08:50 | Outpatient (REF) | payer OTHER, SELFPAY | LOC: RAD 08:50 | PROVIDERS: ATTENDING PHYSICIAN Internal Medicine | DX: M81.0 Age-related osteoporosis without current pathological fracture (principal) | CPT/HCPCS: 77080 ==